=== PATIENT | female | born 1935 | race Caucasian/White ===

== ENCOUNTER 2020-06-19 09:02 | Outpatient (CLI) | payer MEDICARE, SELFPAY ==
--- NOTE | ~2020-06-19 | MM_ITS ---
EXAMINATION: MM screening valeri BI w kristian HISTORY: Screening TECHNIQUE: Craniocaudal and mediolateral oblique 3-D tomosynthesis images were obtained and synthetic 2-D images were generated. CAD analysis was submitted and interpreted. COMPARISON: Comparison to multiple prior studies sequentially, with oldest reviewed study dated 01/19. BREAST PARENCHYMAL COMPOSITION: The breasts are heterogeneously dense, which may obscure small masses . FINDINGS: There is no evidence of suspicious mass, calcification, or architectural distortion to sugg est malignancy in either breast. There has been no suspicious interval change. IMPRESSION: 1. No mammographic evidence of malignancy. 2. Recommend routine screening mammography in one year. BI-RADS Category 1: Negative Reviewed, dictated and finalized at location A.
== END 2020-06-19 09:03 | disposition home or self-care (01) ==
PROVIDERS: PCP Internal Medicine; Visit Provider Internal Medicine
DX: Z12.31 Encounter for screening mammogram for malignant neoplasm of breast (principal)
CPT/HCPCS: 77063; 77067

== ENCOUNTER 2020-11-04 10:58 | Outpatient (NON) | payer MEDICARE, SELFPAY ==
[2020-11-04 21:33] LABS: SARS-CoV-2 RNA PCR Positive
== END 2020-11-04 10:59 ==
LOC: ANHCOVIDDT 10:59
PROVIDERS: PCP Internal Medicine; Visit Provider Physician Assistant
DX: U07.1 COVID-19 (principal); R68.89 Other general symptoms and signs
CPT/HCPCS: 87635; C9803; U0003

== ENCOUNTER 2020-11-18 11:18 | Outpatient (CLI) | payer MEDICARE, SELFPAY ==
--- NOTE | ~2020-11-18 | XR_ITS ---
EXAMINATION: XR chest 2V DATE: 11/18/2020 11:44 INDICATION: Cough. TECHNIQUE: Frontal and lateral views of the chest were obtained. COMPARISON: Chest 2 views 12/07/2016, CT abdomen and pelvis 10/27/2018 FINDINGS: There are mild airspace opacities in the mid and lower lung zones. There is linear atelecta sis versus scarring in left upper lung zone. No pleural effusion or pneumothorax. Cardiomegaly is not ed. IMPRESSION: 1. Mild airspace opacities in the mid and lower lung zones, consistent with atelectasis versus pneumo jayne. 2. Cardiomegaly. Reviewed, dictated and finalized at location A. ICAL PHARMACY MANAGER IMPRESSION: 1. Mild airspace opacities in the mid and lower lung zones, consistent with ate lectasis versus pneumonia. 2. Cardiomegaly.
== END 2020-11-18 11:19 | disposition home or self-care (01) ==
PROVIDERS: PCP Internal Medicine; Visit Provider Internal Medicine
DX: R05 Cough (principal); I51.7 Cardiomegaly
CPT/HCPCS: 71046

== ENCOUNTER 2020-11-26 10:09 | Outpatient (CLI) | payer MEDICARE, SELFPAY ==
--- NOTE | 2020-11-26 10:22 | ECG_ITS ---
Measurements Intervals [place] Rate: 90 P: VT: 0 QRS: 84 QRSD: 92 T: -21 QT: 353 QTc: 433 Interpretive Statements ATRIAL FIBRILLATION BORDERLINE ST-T WAVE ABNORMALITY- ANT/INF LEADS ABNORMAL ECG Electronically Signed On 11-26-2020 12:08:29 [employer] [place] by Evgeny Wade D.O.
== END 2020-11-26 10:10 | disposition home or self-care (01) ==
PROVIDERS: PCP Internal Medicine; Visit Provider Internal Medicine
DX: I49.9 Cardiac arrhythmia, unspecified (principal); R94.31 Abnormal electrocardiogram [ECG] [EKG]
CPT/HCPCS: 93005

== ENCOUNTER 2021-06-19 09:29 | Outpatient (CLI) | payer MEDICARE, SELFPAY ==
--- NOTE | ~2021-06-19 | MM_ITS ---
EXAMINATION: MM screening valeri BI w kristian HISTORY: Screening TECHNIQUE: Craniocaudal and mediolateral oblique 3-D tomosynthesis images were obtained and synthetic 2-D images were generated. CAD analysis was submitted and interpreted. COMPARISON: Comparison to multiple prior studies sequentially, with oldest reviewed study dated 11/2014. BREAST PARENCHYMAL COMPOSITION: The breasts are heterogeneously dense, which may obscure small masses . FINDINGS: There is no evidence of suspicious mass, calcification, or architectural distortion to sugg est malignancy in either breast. There has been no suspicious interval change. IMPRESSION: 1. No mammographic evidence of malignancy. 2. Recommend routine screening mammography in one year. BI-RADS Category 1: Negative Reviewed, dictated and finalized at location A.
== END 2021-06-19 09:30 | disposition home or self-care (01) ==
LOC: ANHIMG 09:30
PROVIDERS: PCP Internal Medicine; Visit Provider Internal Medicine
DX: Z12.31 Encounter for screening mammogram for malignant neoplasm of breast (principal)
CPT/HCPCS: 77063; 77067

== ENCOUNTER 2021-08-24 12:31 | Emergency (ER) | payer MEDICARE, SELFPAY ==
[2021-08-24 12:35] VITALS: BP 119/63; PULSE 85; RESP 16; TEMP 36.7; O2SAT 97
--- NOTE | 2021-08-24 12:44 | ED.URI ---
HPI - URI/Sore Throat General Chief Complaint: Upper Respiratory Infection Stated Complaint: Sinus Congestion Time Seen by Provider: 08/24/21 12:44 Source: patient, family and RN notes reviewed History of Present Illness HPI Narrative: Patient is an 85-year-old female who presents the urgent care with a family member with complaints of chronic sinusitis symptoms. States that she has had sinus congestion, postnasal drainage, mild cough and rhinorrhea for approximately 2+ weeks. Patient states that she recently also had the stomach flu and has resolved all symptoms. Denies of any recent fevers, nausea, vomiting, shortness of breath. Patient states she did have Covid over [place] last year and has not since then received the Covid vaccine. Patient states that she has had some chronic fatigue since being diagnosed with Covid. No other acute complaints. No acute distress noted. Patient and family aware of the plan of care. Some parts of this dictation were generated by voice recognition software and may contain typographical and/or grammatical inaccuracies. Related Data Home Medications Medication Instructions Recorded Confirmed calcium carbonate 500 mg (1,250 2 tablet PO DAILY tablet 11/10/19 08/24/21 mg)-vitamin D3 200 unit tablet glucosamine sulfate 500 mg tablet 500 mg PO BID 11/10/19 08/24/21 rivaroxaban [Xarelto] 20 mg PO DAILY 08/24/21 08/24/21 Allergies Allergy/AdvReac Type Severity Reaction Status Date / Time bacitracin Allergy Mild Rash Verified 08/24/21 12:40 [From Neosporin ([id number])] codeine Allergy Mild Nausea and Verified 08/24/21 12:40 Vomiting latex Allergy Mild Rash Verified 08/24/21 12:40 neomycin Allergy Mild Rash Verified 08/24/21 12:40 [From Neosporin ([id number])] polymyxin B Allergy Mild Rash Verified 08/24/21 12:40 [From Neosporin ([id number])] Review of Systems Review of Systems: CONSTITUTIONAL: Denies fever, chills, or sweats. EYES: Denies visual changes, redness, or discharge. ENT: Sinus congestion, postnasal drainage CARDIOVASCULAR: Denies chest pain, palpitations, or edema. RESPIRATORY: Reports a mild cough without dyspnea GASTROINTESTINAL: Denies abdominal pain, nausea, vomiting, or diarrhea. GENITOURINARY: Denies dysuria or hematuria. SKIN: Denies rash or itching. MUSCULOSKELETAL: Denies back pain, joint pain. Reports body aches NEUROLOGIC: Denies headache, numbness, or weakness. All other systems reviewed are negative, except as documented in HPI. [facility] Past Medical History Medical History (Updated 08/24/21 @ 12:54 by TAMMIE Hernandez) Facial basal cell cancer H/O Mohs micrographic surgery for skin cancer (~04/2020) Family History Family History Mother Hypertension Family history of Alzheimer's disease Family history of renal failure Patient's mother is Other Cerebrovascular accident Diabetes mellitus Family history of kidney disease Social History Social History Smoking status: Never smoker Second hand tobacco smoke exposure: No Alcohol intake: never Substance use: never Comments At the time of my signature, I reviewed and agree with the nursing past medical, surgical, social, and family history. There is no relevant family history pertinent to the patient complaint. Exam Narrative: GENERAL: This is a well-nourished, well-developed patient, in no apparent distress. HEAD: normocephalic, atraumatic. EYES: PERRL. Sclera clear/white. Vision is grossly intact. EARS: External ears normal, auditory canals clear and without drainage, TMs normal without perforation. Hearing grossly intact. NOSE: External nose normal with no obvious nasal discharge, nares without redness, clear throat rhinorrhea. THROAT: Mucous membranes moist, posterior pharynx clear. Mild postnasal drainage NECK: N
[2021-08-24 12:49] VITALS: BP 119/63; PULSE 85; RESP 16; TEMP 36.7; O2SAT 97
== END 2021-08-24 13:00 | disposition home or self-care (01) ==
PROVIDERS: Emergency Provider Nurse Practitioner Family; PCP Internal Medicine
DX: J01.90 Acute sinusitis, unspecified (principal); Z85.828 Personal history of other malignant neoplasm of skin
CPT/HCPCS: 99213; G0463

== ENCOUNTER 2021-12-26 14:09 | Outpatient (CLI) | payer MEDICARE, SELFPAY ==
--- NOTE | ~2021-12-26 | US_ITS ---
EXAMINATION: US art doppler w press LE BI DATE: 12/26/2021 15:00 INDICATION: Peripheral arterial occlusive disease. TECHNIQUE: Segmental pressures and plethysmographic and Doppler waveforms of the brachial and lower e xtremity arteries were obtained. COMPARISON: None. FINDINGS: Right and left brachial artery pressures of 99 mm Hg and 118 mm Hg, respectively, are concordant (nor mal difference <= 30 mmHg). The right and left high-thigh pressure indices are 1.44 and 1.51, respect ively (normal > 1.2). The right ankle-brachial index (STEF) is 0.97 (normal >= 0.9-1). The right great toe-brachial index (T BI) is 0.80 (normal >= 0.6-0.8). The right lower extremity segmental pressure gradients are increased between the high right thigh and the right rtlpi-yya-ciwn popliteal artery (normal gradients <= 20-3 0 mmHg between adjacent levels on the same leg or the same levels on the two legs). Additional increa sed pressure gradient between the right xqcyc-rml-evgr popliteal artery and the arteries at the right ankle. Arterial waveforms are biphasic with brisk systolic upstrokes throughout the arteries of the right lower limb. Cardiac arrhythmia is present. The left STEF is 1.35. The left TBI is 0.56. The left lower extremity segmental pressure gradients are increased between the left high thigh and the left zwjsm-qib-xgtc popliteal artery as well as betwee n the left posterior tibial artery and both the left wpqct-ter-saat popliteal artery and left dorsali s pedis artery. Arterial waveforms are biphasic with brisk systolic upstrokes throughout the arteries of the left lower limb. IMPRESSION: 1. 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 2. No significant arterial occlusive disease to the right lower limb with normal right STEF and TBI. 3. Cardiac arrhythmia is present. Correlate with EKG. Reviewed, dictated and finalized at location A. HANA DEVELOPER IMPRESSION: 1. 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 2. No significant arterial occlusive disease to the right lower limb with nolan l right STEF and TBI. 3. Cardiac arrhythmia is present. Correlate with EKG.
== END 2021-12-26 14:10 | disposition home or self-care (01) ==
PROVIDERS: PCP Internal Medicine; Visit Provider Podiatrist Foot & Ankle Surgery
DX: I73.9 Peripheral vascular disease, unspecified (principal); I49.9 Cardiac arrhythmia, unspecified
CPT/HCPCS: 93923

== ENCOUNTER 2022-01-12 13:19 | Outpatient (CLI) | payer MEDICARE, SELFPAY ==
--- NOTE | 2022-01-12 13:20 | EST_ITS ---
Patient Info Name: Cadence Palacios Age: 86 years : 1935 Gender: Female Ht: 58 in Wt: 131 lbs BSA: 1.58 m2 Exam Date: 01/12/2022 2:08 PM Exam Location: [facility] Patient Status: Outpatient Admit Date: 01/12/2022 Staff Ordering Physician: Evgeny Wade DO Attending Provider: Evgeny Wade DO Exam Type: CA stress nadia w NM Summary 1. 1. Negative lexiscan stress test for ischemic ST changes by ECG criteria. 2. 2. Stable hemodynamics throughout the test. 3. 3. Nuclear scan to follow and will be reported separately. Please correlate with it. 4. 4. Patient informed of the above results. Protocol: LEXISCAN Stress ECG Details Stage: REST Duration (min): 0 min : 58 sec HR (bpm): 105 SBP (mmHg): 125 DBP (mmHg): 80 Stage: REST Duration (min): 10 min : 9 sec HR (bpm): 113 SBP (mmHg): 125 DBP (mmHg): 80 Stage: STAGE 1 Duration (min): 0 min : 6 sec HR (bpm): 105 SBP (mmHg): 125 DBP (mmHg): 80 Stage: RECOVERY Duration (min): 0 min : 53 sec HR (bpm): 125 SBP (mmHg): 125 DBP (mmHg): 80 Stage: RECOVERY Duration (min): 1 min : 53 sec HR (bpm): 127 SBP (mmHg): 116 DBP (mmHg): 75 Stage: RECOVERY Duration (min): 2 min : 53 sec HR (bpm): 132 SBP (mmHg): 124 DBP (mmHg): 79 Stage: RECOVERY Duration (min): 3 min : 53 sec HR (bpm): 128 SBP (mmHg): 126 DBP (mmHg): 81 Stage: RECOVERY Duration (min): 4 min : 53 sec HR (bpm): 113 SBP (mmHg): 123 DBP (mmHg): 84 Stage: RECOVERY Duration (min): 5 min : 53 sec HR (bpm): 131 SBP (mmHg): 123 DBP (mmHg): 85 Stage: RECOVERY Duration (min): 6 min : 3 sec HR (bpm): 115 SBP (mmHg): 123 DBP (mmHg): 85 Rest HR: 113 bpm Peak HR: 132 bpm Rest Sys BP: 125 mmHg Peak Sys BP: 126 mmHg Max Pred HR: 135 bpm % Max Pred HR: 98 % Target HR: 115 bpm Max RPP: 16,632 bpm*mmHg Termination Reason: Completed protocol Cardiac Symptoms: Shortness of breath Total Time: 0 min : 6 sec Rest Mortensen BP: 80 mmHg Peak Mortensen BP: 81 mmHg Total Dose: 0.4 mg Resting ECG Normal sinus rhythm - normal ECG. Stress ECG No ST changes. Arrhythmias None. Report Signatures
--- NOTE | 2022-01-12 17:36 | WPDCARIOSTRE ---
Nuclear Stress Test INDICATIONS Indications: Shortness of breath PROCEDURE Procedure Performed: Myocardial Perf Spect-Multi Procedure: Patient underwent a lexiscan stress test and immediately as injected with 30.6 mCi of cardiolyte. Multiple tomographic images were obtained. These are of good quality. There are no perfusion defects with stress imaging. A separate resting images were obtained after patient was injected with 9.4 mCi of cardiolyte. Multiple tomographic images were obtained. These are of good quality. There are no perfusion defects with rest imaging. CONCLUSION Conclusion: 1. Normal myocardial perfusion imaging demonstrating no perfusion defects during stress or rest imaging. 2. No reversible ischemia. 3. Left ventriculogram demonstrates normal measured ejection fraction of 62% with no wall motion abnormalities. 4. TID score is normal at 0.85.
== END 2022-01-12 13:20 | disposition home or self-care (01) ==
LOC: CHSIMG 13:20
PROVIDERS: PCP Internal Medicine; Visit Provider Internal Medicine Cardiovascular Disease
DX: R07.9 Chest pain, unspecified (principal)
CPT/HCPCS: 78452; 93017; A9502; J2785

== ENCOUNTER 2022-07-16 10:17 | Outpatient (CLI) | payer MEDICARE, SELFPAY ==
--- NOTE | ~2022-07-16 | MM_ITS ---
EXAMINATION: MM screening valeri BI w kristian HISTORY: Screening mammogram TECHNIQUE: Craniocaudal and mediolateral oblique 3-D tomosynthesis images were obtained and synthetic 2-D images were generated. CAD analysis was submitted and interpreted. COMPARISON: 06/19/2021, 06/19/2020, 04/17/2019 bilateral screening mammogram examinations BREAST PARENCHYMAL COMPOSITION: The breasts are heterogeneously dense, which may obscure small masses . FINDINGS: Occasional bilateral benign calcifications. There is no evidence of suspicious mass, calcif ication, or architectural distortion to suggest malignancy in either breast. There has been no suspic ious interval change. IMPRESSION: 1. No mammographic evidence of malignancy. 2. Recommend routine screening mammography in one year. BI-RADS Category 2: Benign finding(s). Reviewed, dictated and finalized at location A.
== END 2022-07-16 10:18 | disposition home or self-care (01) ==
PROVIDERS: PCP Internal Medicine; Visit Provider Internal Medicine
DX: Z12.31 Encounter for screening mammogram for malignant neoplasm of breast (principal)
CPT/HCPCS: 77063; 77067

== ENCOUNTER 2022-08-30 19:20 | Emergency (ER) | payer MEDICARE, SELFPAY ==
--- NOTE | ~2022-08-30 | CT_ITS ---
EXAMINATION: CT facial & cervical spine wo DATE: 08/30/2022 20:13 INDICATION: Head injury TECHNIQUE: Computed tomography (CT) of the maxillofacial region and cervical spine was performed with out intravenous contrast. The dose-length product (DLP) was 180.79 mGy-cm. Automated exposure control and iterative reconstruction technique were employed. COMPARISON: None FINDINGS: MAXILLOFACIAL CT: There are comminuted bilateral nasal bone fractures. No additional facial fracture is identified. The re are maxillary soft tissue swelling. CERVICAL SPINE CT: There is 1 mm of anterolisthesis of C3-4 on C5 and C5 on C6. There is no fracture. The odontoid is in tact. There is mild loss of intervertebral disc space height throughout the cervical spine. There is moderate multilevel facet and uncovertebral joint osteoarthritis. IMPRESSION: 1. Acute bilateral nasal bone fractures. 2. Mild cervical spondylosis without acute findings. Reviewed, dictated and finalized at location F.
--- NOTE | ~2022-08-30 | XR_ITS ---
EXAMINATION: XR hip RT 2V w AP pelvis INDICATION: Right hip pain TECHNIQUE: AP view the pelvis and two views of the right hip are obtained. COMPARISON: None available FINDINGS: Bone alignment is normal. There is mild osteoarthritis of the hips. There is no fracture. T here are phleboliths of the pelvis. Calcified atherosclerosis is noted. IMPRESSION: 1. No acute osseous abnormality. Reviewed, dictated and finalized at location F.
--- NOTE | ~2022-08-30 | CT_ITS ---
EXAMINATION: CT brain wo con INDICATION: Head injury COMPARISON: None TECHNIQUE: Standard unenhanced head CT. The dose-length product (DLP) was 605.33 mGy-cm. The mA was a djusted according to patient size. Iterative reconstruction technique was employed. FINDINGS: There is no acute intraparenchymal hemorrhage. No evidence of mass lesion. No evidence of a cute infarction. There is mild periventricular and subcortical hypodensity probably related to small vessel ischemic disease. There is mild prominence of the sulci and ventricles related to cerebral atr ophy. Intracranial calcified cerebral atherosclerosis is noted. There are no extra-axial collections. There is no mass effect or midline shift. The orbits and soft tissues are unremarkable. The visualiz ed sinuses and mastoid air cells are well aerated. IMPRESSION: 1. No acute intracranial abnormality. 2. Age related findings. Reviewed, dictated and finalized at location F.
--- NOTE | ~2022-08-30 | XR_ITS ---
EXAMINATION: XR shoulder LT min 2V INDICATION: Left shoulder pain TECHNIQUE: Four views of the left shoulder are submitted. COMPARISON: None FINDINGS: Normal alignment. No fracture. There is moderate glenohumeral and acromioclavicular joint o steoarthritis. Soft tissues are unremarkable. IMPRESSION: 1. No acute osseous abnormality. Reviewed, dictated and finalized at location F.
[2022-08-30 19:25] VITALS: BP 128/85; PULSE 82; RESP 18; TEMP 36.2; O2SAT 96
[2022-08-30 20:30] VITALS: BP 131/78; PULSE 73; RESP 16; O2SAT 98
[2022-08-30] MEDS: TETANUS,DIPHTHERIA,AC PERTUSSIS ADULT 0.5 ML (ADACEL) IM (20:38)
--- NOTE | 2022-08-30 20:42 | ED.FALL ---
HPI - Fall General Chief Complaint: Fall Stated Complaint: fell down yesterday;nose bleeding when eating Time Seen by Provider: 08/30/22 19:37 Source: patient Mode of arrival: ambulatory Limitations: no limitations History of Present Illness HPI Narrative: PATIENT IS A 86-YEAR-OLD WHITE FEMALE YESTERDAY AT 11:00 A.M. SHE TRIPPED AND FELL AT HOME OUTSIDE FACE FORWARD AGAINST THE BRICKS. SHE COMPLAINS OF BRUISING AND SWELLING OF HER FACE AND BILATERAL BLACK EYES. SHE IS ON XARELTO AND YESTERDAY SHE HAD SOME NOSE BLEEDS ASSOCIATED WITH THIS AND IT STOPPED LAST NIGHT. SHE HAS A HISTORY OF ATRIAL FIBRILLATION AND TOOK HER XARELTO THIS MORNING AND THEN HAD SAID SOME MORE BLEEDING TONIGHT DRIPPING DOWN THE BACK OF HER THROAT. DENIES ANY DIZZINESS OR LOSS OF CONSCIOUSNESS. SHE COMPLAINS OF LEFT SHOULDER BE FEELING SHORE BUT HAS FULL RANGE OF MOTION. SHE COMPLAINS OF RIGHT POSTERIOR HIP DISCOMFORT JUST WHEN SHE WALKS. SHE DENIES ANY NUMBNESS OR WEAKNESS OR PARESTHESIAS HEADACHE CHEST PAIN BACK PAIN ABDOMINAL PAIN NAUSEA OR VOMITING PROBLEMS VOIDING OR STOOLING. SHE DENIES ANY OTHER BLEEDING OR BRUISING OTHER THAN BRUISING ON HER ARMS THAT IS USUAL FOR HER. Related Data Home Medications Medication Instructions Recorded Confirmed calcium carbonate 500 mg-vitamin 2 tablet PO DAILY 11/10/19 08/30/22 D3 5 mcg (200 unit) tablet (Os-González 500 + D3) Allergies Allergy/AdvReac Type Severity Reaction Status Date / Time bacitracin Allergy Mild Rash Verified 08/30/22 19:38 [From Neosporin ([id number])] codeine Allergy Mild Nausea and Verified 08/30/22 19:38 Vomiting latex Allergy Mild Rash Verified 08/30/22 19:38 neomycin Allergy Mild Rash Verified 08/30/22 19:38 [From Neosporin ([id number])] polymyxin B Allergy Mild Rash Verified 08/30/22 19:38 [From Neosporin ([id number])] doxycycline AdvReac Nausea and Verified 08/30/22 19:38 Vomiting levofloxacin AdvReac Nausea and Verified 08/30/22 19:38 Vomiting Review of Systems Review of Systems: All systems reviewed & are unremarkable except as noted in HPI and below Constitutional: Constitutional: Reports as per HPI Eyes: Comments: PATIENT SAID THIS MORNING WHEN SHE WOKE UP HER EYES WERE ALMOST SWOLLEN SHUT BUT THE SWELLING IS GONE DOWN QUITE A BIT. SHE COMPLAINS OF SOME PAIN AROUND HER EYES AND CHEEKS. ENT: Reports system reviewed and no additional complaints, except as documented, Reports as per HPI, Denies dysphagia, Denies vertigo, Denies dizziness, Reports epistaxis, Reports nasal congestion and Denies sore throat Cardiovascular: Cardiovascular: Reports no additional cardiovascular complaints Respiratory: Respiratory: Reports no additional respiratory complaints Gastrointestinal: Gastrointestinal: Reports no additional gastrointestinal complaints Genitourinary: Genitourinary: Reports no additional female genitourinary complaints Musculoskeletal: Musculoskeletal: Reports no additional musculoskeletal complaints, Reports as per HPI, Denies back pain, Denies myalgias, Reports arthralgias, Denies joint swelling and Denies muscle cramps Integumentary/Breasts: Skin/Breast: Reports system reviewed and no additional complaints, except as docu Neurologic: Reports system reviewed and no additional complaints, except as documented, Reports as per HPI, Denies confusion, Denies vertigo, Denies dizziness, Denies syncope, Denies headache(s), Denies focal weakness, Denies numbness and Denies weakness Psychiatric: Psychiatric: Reports no additional psychiatric complaints [facility] Past Medical History Medical History (Updated 08/30/22 @ 21:08 by Carter Cano MD) Facial basal cell cancer H/O Mohs micrographic surgery for skin cancer (~04/2020) Family History Family History Mother Hypertension Family history of Alzheimer's disease Family history of renal f
== END 2022-08-30 21:10 | disposition home or self-care (01) ==
PROVIDERS: Emergency Provider Emergency Medicine; PCP Internal Medicine
DX: S02.2XXA Fracture of nasal bones, initial encounter for closed fracture (principal); S00.83XA Contusion of other part of head, initial encounter; S43.402A Unspecified sprain of left shoulder joint, initial encounter; S70.01XA Contusion of right hip, initial encounter; W19.XXXA Unspecified fall, initial encounter
CPT/HCPCS: 70450; 70486; 72125; 73030; 73502; 90471; 90715; 99284

== ENCOUNTER → 2023-01-04 11:09 | Outpatient (CLI) | payer MEDICARE, SELFPAY ==
--- NOTE | ~2023-01-04 | XR_ITS ---
Lumbosacral Spine: AP and lateral views Clinical History: Pain COMPARISON: 02/20/2015 Findings: The normal lordotic curve is maintained. No acute fracture seen. Stable grade 1 anterolisth esis of L4 over L5, measuring 8 mm. There is severe degenerative disc narrowing at L4-L5 and L5-S1. T here is advanced facet arthropathy from L3 through S1. The sacroiliac joints are normally outlined. Impression: No acute fracture. 8 mm anterolisthesis of L4 over L5. Degenerative spondylosis, as detailed above. Reviewed, dictated and finalized at location M. STRY NURSE Impression: No acute fracture. 8 mm anterolisthesis of L4 over L5. Degenerative spondylosis, as detailed above.
== END ==
PROVIDERS: PCP Internal Medicine; Visit Provider Nurse Practitioner Family
DX: M54.59 Other low back pain (principal); M43.16 Spondylolisthesis, lumbar region
CPT/HCPCS: 72100

== ENCOUNTER → 2023-02-01 10:13 | Outpatient (CLI) | payer MEDICARE, SELFPAY ==
--- NOTE | ~2023-02-01 | MR_ITS ---
MRI of the lumbar spine Clinical History: Back pain Technique: Axial T2-weighted images, and sagittal T1-weighted, T2-weighted, and T2 fat-sat images wer e acquired. COMPARISON: 04/29/2007 Findings: No fracture identified. 7 mm anterolisthesis of L4 over L5 is present. There is severe dege nerative disc narrowing at L4-L5 and L5-S1. No suspicious bone marrow signal abnormality seen. At L1-L2, there is mild diffuse disc bulge and mild facet arthropathy. No spinal canal stenosis. Ther e is mild to moderate right neural foraminal narrowing. Left neural foramen preserved. At L2-L3, there is no disc bulge or herniation. There is facet joint hypertrophy. No spinal canal mary jane nosis or definite neural foraminal narrowing. At L3-L4, there is mild disc bulge with advanced facet arthropathy. There is minimal central canal st enosis. There is minimal bilateral neural foraminal narrowing. At L4-L5, listhesis and facet arthropathy result in severe spinal canal stenosis/thecal sac compressi on. There is severe bilateral neural foraminal narrowing. At L5-S1, disc bulge and facet arthropathy result in moderate central canal stenosis. There is severe bilateral neural foraminal narrowing. Paravertebral soft tissues are unremarkable. Impression: Severe degenerative spondylosis at L4-L5 and L5-S1, as detailed above. Mild degenerative spondylosis of the remaining lumbar levels, as detailed above. 7 mm anterolisthesis of L4 over L5. Reviewed, dictated and finalized at [facility]. Impression: Severe degenerative spondylosis at L4-L5 and L5-S1, as detailed above. Mild degenerative spondylosis of the remaining lumbar levels, as detailed above . 7 mm anterolisthesis of L4 over L5.
== END ==
PROVIDERS: PCP Internal Medicine; Visit Provider Nurse Practitioner Family
DX: M47.816 Spondylosis without myelopathy or radiculopathy, lumbar region (principal)
CPT/HCPCS: 72148

== ENCOUNTER 2023-03-24 15:18 | Outpatient (RCR) | payer MEDICARE, SELFPAY ==
--- NOTE | 2023-03-24 15:55 | PTOPEVAL1 ---
Assessment and note entered by Kristopher Montoya Evaluation Information Assessment Status Evaluation Diagnosis low back pain Onset 11/08/22 Subjective Information Pt. reports she had back pain starting around the beginning of the year. She recalls falling around this time and that may have triggered her pain. She describes pain mainly on the right side of the low back and will occasionally go down the left leg. She reports that pain is increased with long periods of standing. She reports she had injections last week which have helped to decrease her pain. She reports that she has no difficulty with sleeping and no pain with sitting. All pain is noted in standing. She reports that she continues to complete all IADL's despite her pain. She states that she gets pain with her yardwork still, but is much less intense since injections. She reports that her goal is to decrease pain. Reported Pain Level Pain Score 2: Self Report Assessment PT Clinical Summary Pt. is an 87 year old female who enters the clinic with low back pain. She presents with impaired posture, impaired strength, impaired flexiblity and pain on this date. Continued skilled PT is indicated in order to improve these areas to allow for improved comfort with IADL performance. Plan of Care Interventions Electrical Stimulation,Hot Pack/Cold Pack,Manual Therapy,Neuro Re-education,Therapeutic Activities, Therapeutic Exercise PT Services Indicated Yes Treatment Frequency and 2x/week x 10 visits Duration These treatments will address the objective and functional deficits as defined above. The patient will be advanced safely and appropriately in order for the patient to progress towards his/her prior level of function. Additional exercises will be introduced and as well as a comprehensive home exercise program upon discharge, if needed, ?to ensure carryover of functional gains achieved in the clinic. This treatment plan has been reviewed and agreement upon by the patient.
== END 2023-04-27 20:00 | disposition home or self-care (01) ==
LOC: CHSPT 15:18
PROVIDERS: Visit Provider Nurse Practitioner Family
DX: M54.16 Radiculopathy, lumbar region (principal); M54.59 Other low back pain
CPT/HCPCS: 97014; 97110; 97112; 97161; G0283

== ENCOUNTER 2023-08-25 08:34 | Emergency (ER) | payer MEDICARE, SELFPAY ==
[2023-08-25] VITALS (7 sets, daily range): BP systolic 134–158; BP diastolic 73–103; PULSE 87–103; RESP 18–20; TEMP 36.7; O2SAT 94–97
--- NOTE | ~2023-08-25 | CT_ITS ---
EXAMINATION: CT brain wo con DATE: 08/25/2023 10:30 INDICATION: Frontal headache radiating to neck. No known injury. TECHNIQUE: Computed tomography (CT) of the head was performed without intravenous contrast. The mA wa s adjusted according to patient size. Iterative reconstruction technique was employed. Exam dose: 60 5.33 mGy-cm total exam DLP. COMPARISON: 08/30/2022 CT brain FINDINGS: Prominent bilateral carotid siphon and supraclinoid internal carotid artery calcifications and some vertebrobasilar artery calcifications are noted. Chronic right basal ganglia lacunar infarcts. There is nonspecific diminished attenuation of the cere bral white matter, likely due to chronic small vessel ischemic changes. No intracranial mass lesion or hemorrhage or recent cerebrovascular accident, midline shift or mass e ffect is detected. No fracture or bone destruction of the cranial vault. The mastoid air cells and included paranasal sinuses are normally developed and aerated. IMPRESSION: Cerebral atherosclerosis and chronic small vessel ischemic changes of the cerebral white matter Chronic small right basal ganglia lacunar infarcts No acute intracranial finding Reviewed, dictated and finalized at [facility]. Reviewed, dictated and finalized at location [facility].
--- NOTE | 2023-08-25 08:48 | ED.GENADULT ---
HPI - General Adult General Chief complaint: Unspecified Stated complaint: BP Issues Time Seen by Provider: 08/25/23 08:47 Source: patient Mode of arrival: ambulatory Limitations: no limitations History of Present Illness HPI narrative: 87-year-old female with a history of hypertension, dyslipidemia, atrial fibrillation on Xarelto, diastolic dysfunction with a negative stress test on 01/12/2022 presents to the ER with -- acute onset blurred vision which has resolved. currently her vision normal. -- Hypertension with a blood pressure of 140/100. Her blood pressure was elevated on presentation of 158/103. Currently her blood pressure is 138/89. The patient was on Lisinopril,l, bisoprolol and Norvasc. Her blood pressure was noted to be low following which her pot operator discontinued the Norvasc. the patient had a negative stress test on 01/12/2022. Denied any chest pain or breath -- Headache Onset (ago): hour(s) ( started 3 hours ago.) Location: head Severity: mild Quality: aching Pain Consistency: constant Relieving factors: none Exacerbating factors: none Associated symptoms: denies other symptoms and headaches Treatments prior to arrival: none Related Data Home Medications Medication Instructions Recorded Confirmed calcium carbonate 500 mg calcium 500 mg PO DAILY 09/02/22 07/15/23 (1,250 mg) tablet (Oyster Shell Calcium) pravastatin 10 mg tablet 10 mg PO DAILY 06/28/23 07/15/23 Allergies Allergy/AdvReac Type Severity Reaction Status Date / Time bacitracin Allergy Mild Rash Verified 07/15/23 10:06 [From Neosporin ([id number])] codeine Allergy Mild Nausea and Verified 07/15/23 10:06 Vomiting latex Allergy Mild Rash Verified 07/15/23 10:06 neomycin Allergy Mild Rash Verified 07/15/23 10:06 [From Neosporin ([id number])] polymyxin B Allergy Mild Rash Verified 07/15/23 10:06 [From Neosporin ([id number])] doxycycline AdvReac Nausea and Verified 07/15/23 10:06 Vomiting levofloxacin AdvReac Nausea and Verified 07/15/23 10:06 Vomiting Review of Systems Review of Systems: All systems reviewed & are unremarkable except as noted in HPI and below Constitutional: Constitutional: Reports as per HPI and Reports no additional constitutional complaints Eyes: Eyes: Reports as per HPI and Reports no additional eye complaints ENT: Reports system reviewed and no additional complaints, except as documented and Reports as per HPI Comments: Decreased hearing Cardiovascular: Cardiovascular: Reports as per HPI and Reports no additional cardiovascular complaints Comments: Was hypertensive in the morning. Respiratory: Respiratory: Reports as per HPI and Reports no additional respiratory complaints Gastrointestinal: Gastrointestinal: Reports as per HPI and Reports no additional gastrointestinal complaints Genitourinary: Genitourinary: Reports no additional female genitourinary complaints and Reports as per HPI Musculoskeletal: Musculoskeletal: Reports no additional musculoskeletal complaints and Reports as per HPI Integumentary/Breasts: Skin/Breast: Reports system reviewed and no additional complaints, except as docu and Reports as per HPI Neurologic: Reports system reviewed and no additional complaints, except as documented and Reports as per HPI Psychiatric: Psychiatric: Reports no additional psychiatric complaints and Reports as per HPI Endocrine: Endocrine: Reports no additional endocrine complaints and Reports as per HPI Hematologic/Lymphatic: Hematologic/Lymphatic: Reports no additional hematologic/lymphatic complaints and Reports as per HPI Allergic/Immunologic: Allergic/Immunologic: Reports no additional allergic/immunologic complaints and Reports as per HPI [facility] Past Medical History Medical History (Updated 08/25/23 @ 10:17 by Shad Fierro MD) Facial basal cell cancer H/O Mohs micrographic surgery for skin cancer (~04/2020)
--- NOTE | 2023-08-25 09:04 | ECG_ITS ---
Measurements Intervals [place] Rate: 83 P: VT: 0 QRS: 144 QRSD: 85 T: -6 QT: 367 QTc: 434 Interpretive Statements ATRIAL FIBRILLATION BASELINE ARTIFACT NONSPECIFIC ST AND T-WAVE ABNORMALITY ABNORMAL ECG COMPARED TO ECG 11/26/2020 10:32:05 NO SIGNIFICANT CHANGE Electronically Signed On 08-25-2023 18:22:29 CDT by Dieter Alcaraz M.D.
[2023-08-25 09:20] LABS: Basophils Absolute Auto 0.05 K/mm3 (0.00-0.10); Basophils Percent Auto 0.8 % (0.0-1.0); Eosinophils Percent Auto 4.6 % (1.0-6.0); Hematocrit 49.6 % (35.0-42.0); Hemoglobin 15.9 g/dL (11.7-13.8); Immature Granulocyte Absolute 0.02 K/mm3 (0.00-0.00); Immature Granulocyte Percent A 0.3 % (0.0-0.0); Lymphocytes Absolute Auto 1.45 K/mm3 (1.10-4.50); Mean Corpuscular HGB Conc 32.1 g/dL (32.0-36.0); Mean Corpuscular Hemoglobin 28.6 pg (27.0-31.0); Mean Corpuscular Volume 89.4 fL (78.0-102.0); Mean Platelet Volume 10.5 fl (9.2-11.8); Monocytes Absolute Auto 0.62 K/mm3 (0.10-0.90); Monocytes Percent Auto 9.4 % (2.0-11.0); Neutrophils Absolute Auto 4.2 K/mm3 (1.7-7.2); Neutrophils Percent Auto 62.9 % (50.0-70.0); Platelet Count Result 220 K/mm3 (150-420); Red Blood Count 5.55 M/mm3 (4.20-5.40); Red Cell Distribution Width 12.7 % (11.6-14.4); White Blood Count 6.6 K/mm3 (4.8-10.8)
[2023-08-25 09:42] LABS: Alanine Aminotransferase 15 U/L (14-59); Albumin Level 3.1 g/dL (3.4-5.0); Alkaline Phosphatase 97 U/L (46-116); Anion Gap 9 mmol/L (8-16); Aspartate Amino Transferase 11 U/L (15-37); Bilirubin,Total 0.4 mg/dL (0.00-1.00); Blood Urea Nitrogen 32 mg/dL (7-18); Calcium 9.3 mg/dL (8.5-10.1); Carbon Dioxide 29 mmol/L (21-32); Chloride 105 mmol/L (98-108); Estimated Glomerular Filt Rate 42; Glucose 87 mg/dL (70-99); NT Pro B Type Natriuretic Pept 2567 pg/mL (0-450); Osmolality Calculated 301 mOsm/kg (285-295); Potassium 4.2 mmol/L (3.5-5.1); Sodium 143 mmol/L (136-145); Total Protein 6.2 g/dL (6.4-8.2)
== END 2023-08-25 10:50 | disposition home or self-care (01) ==
PROVIDERS: Emergency Provider Internal Medicine Critical Care Medicine; PCP Internal Medicine
DX: I48.11 Longstanding persistent atrial fibrillation (principal); R51.9 Headache, unspecified; I12.9 Hypertensive chronic kidney disease with stage 1 through stage 4 chronic kidney disease, or unspecified chronic kidney disease; N18.32 Chronic kidney disease, stage 3b; E78.5 Hyperlipidemia, unspecified; Z79.01 Long term (current) use of anticoagulants
CPT/HCPCS: 36415; 70450; 80053; 83880; 84484; 85025; 93005; 99284

== ENCOUNTER 2023-09-01 10:11 | Outpatient (CLI) | payer MEDICARE, SELFPAY ==
--- NOTE | ~2023-09-01 | MM_ITS ---
EXAMINATION: MM screening valeri BI w kristian HISTORY: Screening mammogram TECHNIQUE: Craniocaudal and mediolateral oblique 3-D tomosynthesis images were obtained and synthetic 2-D images were generated. CAD analysis was submitted and interpreted. COMPARISON: 07/16/2022, 06/19/2021, 06/19/2020 right lateral screening mammogram examinations BREAST PARENCHYMAL COMPOSITION: The breasts are heterogeneously dense, which may obscure small masses . FINDINGS: Occasional scattered bilateral benign calcifications. There is no evidence of suspicious ma ss, calcification, or architectural distortion to suggest malignancy in either breast. There has been no suspicious interval change. IMPRESSION: 1. No mammographic evidence of malignancy. 2. Recommend routine screening mammography in one year. BI-RADS Category 2: Benign finding(s). Reviewed, dictated and finalized at location [facility].
== END 2023-09-01 10:12 | disposition home or self-care (01) ==
LOC: ANHIMG 10:14
PROVIDERS: PCP Internal Medicine; Visit Provider Internal Medicine
DX: Z12.31 Encounter for screening mammogram for malignant neoplasm of breast (principal)
CPT/HCPCS: 77063; 77067

== ENCOUNTER 2023-10-25 06:46 | Emergency (ER) | payer MEDICARE, SELFPAY ==
[2023-10-25 06:46] VITALS: BP 142/87; PULSE 88; RESP 20; TEMP 36.4; O2SAT 96
--- NOTE | 2023-10-25 07:13 | ED.GENADULT ---
HPI - General Adult General Chief complaint: Nausea/Vomiting/Diarrhea Stated complaint: nausea; vomiting; diarhhea Time Seen by Provider: 10/25/23 07:11 History of Present Illness HPI narrative: 88yo woman presents feeling weak and tired, nauseated, for the past week. Sinuses congested. Feels chilled and achey. No fever. No chest pain, cough, or dyspnea. No vomiting or diarrhea. No dysuria. Related Data Home Medications Medication Instructions Recorded Confirmed calcium carbonate 500 mg calcium 500 mg PO DAILY 09/02/22 10/25/23 (1,250 mg) tablet (Oyster Shell Calcium) Allergies Allergy/AdvReac Type Severity Reaction Status Date / Time bacitracin Allergy Mild Rash Verified 07/15/23 10:06 [From Neosporin ([id number])] codeine Allergy Mild Nausea and Verified 07/15/23 10:06 Vomiting latex Allergy Mild Rash Verified 07/15/23 10:06 neomycin Allergy Mild Rash Verified 07/15/23 10:06 [From Neosporin ([id number])] polymyxin B Allergy Mild Rash Verified 07/15/23 10:06 [From Neosporin ([id number])] doxycycline AdvReac Nausea and Verified 07/15/23 10:06 Vomiting levofloxacin AdvReac Nausea and Verified 07/15/23 10:06 Vomiting Review of Systems Review of Systems: All systems reviewed & are unremarkable except as noted in HPI and below Constitutional: Constitutional: Reports chills and Denies fever(s) ENT: Denies dysphagia Cardiovascular: Cardiovascular: Denies chest pain Respiratory: Respiratory: Denies dyspnea Gastrointestinal: Gastrointestinal: Denies abdominal pain [facility] Past Medical History Medical History (Updated 10/25/23 @ 08:03 by Michel Schofield MD) Facial basal cell cancer H/O Mohs micrographic surgery for skin cancer (~04/2020) Family History Family History Mother Hypertension Family history of Alzheimer's disease Family history of renal failure Patient's mother is Other Cerebrovascular accident Diabetes mellitus Family history of kidney disease Social History Social History Smoking status: Never smoker Second hand tobacco smoke exposure: No Alcohol intake: never Substance use: never Lack of Transportation: No Lack of Food: Never True Current Housing: I Have Housing Concerned About Future Housing: No Difficulty Paying Gas/Electric Bills: No Difficulty Paying for Meds: No Currently Unemployed: No Education: Grade School Difficulty w/ Childcare or Family Care: No Exam Const: General: healthy appearing and no acute distress Nutritional Appearance: well nourished HENMT: Head: normal to inspection, no contusions and no hematomas Eyes: Conjunctivae: conjunctivae normal Resp: Effort & Inspection: normal respiratory effort and not labored Auscultation: clear to auscultation bilaterally Cardio: Rate: regular rate Rhythm: regular rhythm Heart sounds: no murmurs GI: Inspection: non-distended GI Palp: Yes Soft to palpation and No Tenderness to palpation present (GI) Skin: General skin exam: normal color, no jaundice and no pallor Neuro: General: patient oriented x3, moves all extremities, no focal motor deficits and CN's II-XI intact bilaterally Extrem: General: no clubbing, cyanosis or edema Course Vital Signs Vital signs: Vital Signs Temperature 36.4 C 10/25/23 06:46 Pulse Rate 88 10/25/23 06:46 Respiratory Rate 20 10/25/23 06:46 Blood Pressure 142/87 H 10/25/23 06:46 Pulse Oximetry 96 10/25/23 06:46 Oxygen Delivery Room Air 10/25/23 06:46 Temperature 36.4 C 10/25/23 06:46 Pulse Rate 88 10/25/23 06:46 Respiratory Rate 20 10/25/23 06:46 Blood Pressure 142/87 H 10/25/23 06:46 Pulse Oximetry 96 10/25/23 06:46 Oxygen Delivery Room Air 10/25/23 06:46 Medical Decision Making MDM Narrative Med
[2023-10-25] MEDS: PROCHLORPERAZINE MALEATE 5 MG TABLET 2.5 MG PO (07:17)
[2023-10-25 07:26] LABS: Basophils Absolute Auto 0.01 K/mm3 (0.00-0.10); Basophils Percent Auto 0.2 % (0.0-1.0); Hematocrit 46.6 % (35.0-42.0); Hemoglobin 14.8 g/dL (11.7-13.8); Immature Granulocyte Absolute 0.04 K/mm3 (0.00-0.00); Immature Granulocyte Percent A 0.7 % (0.0-0.0); Lymphocytes Absolute Auto 0.62 K/mm3 (1.10-4.50); Lymphocytes Percent Auto 10.4 % (18.0-42.0); Mean Corpuscular HGB Conc 31.8 g/dL (32.0-36.0); Mean Corpuscular Hemoglobin 28.6 pg (27.0-31.0); Mean Platelet Volume 10.1 fl (9.2-11.8); Monocytes Absolute Auto 0.76 K/mm3 (0.10-0.90); Monocytes Percent Auto 12.8 % (2.0-11.0); Neutrophils Absolute Auto 4.5 K/mm3 (1.7-7.2); Neutrophils Percent Auto 75.9 % (50.0-70.0); Platelet Count Result 146 K/mm3 (150-420); Red Blood Count 5.18 M/mm3 (4.20-5.40); Red Cell Distribution Width 13.5 % (11.6-14.4)
[2023-10-25 07:32] LABS: SARS-CoV-2 RNA PCR Positive (Negative)
[2023-10-25 07:33] LABS: Influenza A QL RT-PCR Negative (Negative); Influenza B QL RT-PCR Negative (Negative); RSV RNA, RT-PCR Negative (Negative)
[2023-10-25 07:42] LABS: Alanine Aminotransferase 52 U/L (14-59); Alkaline Phosphatase 113 U/L (46-116); Anion Gap 3 mmol/L (8-16); Aspartate Amino Transferase 48 U/L (15-37); Bilirubin,Total 0.5 mg/dL (0.00-1.00); Blood Urea Nitrogen 13 mg/dL (7-18); Calcium 8.4 mg/dL (8.5-10.1); Carbon Dioxide 32 mmol/L (21-32); Chloride 100 mmol/L (98-108); Estimated Glomerular Filt Rate 51; Glucose 110 mg/dL (70-99); Magnesium 1.5 mg/dL (1.8-2.4); Osmolality Calculated 281 mOsm/kg (285-295); Potassium 3.4 mmol/L (3.5-5.1); Sodium 135 mmol/L (136-145); Total Protein 6.5 g/dL (6.4-8.2)
[2023-10-25 07:45] LABS: Appearance Urine Clear (Clear); Bilirubin Urine Negative (Negative); Blood Urine 1+ (Negative); Color Urine Light Yellow (Yellow); Glucose Urine UA Negative (Negative); Ketones Urine 1+ (Negative); Leukocyte Esterase Ur 1+ LEU/UL (Negative); Nitrate Urine Negative (Negative); Protein Urine 2+ (Negative); Specific Grav Ur >= 1.030 (1.010-1.020); Urobilinogen Urine 0.2 mg/dL (0.2-1.0); pH Urine 5.5 (5.0-8.0)
[2023-10-25 07:52] LABS: Add Urine Microscopic? YES
[2023-10-25 07:53] LABS: Bacteria Urine 1+ /hpf; Squamous Epithelial Cell Urine Rare /hpf (Few)
[2023-10-25 08:03] VITALS: BP 112/102; PULSE 117; RESP 20; O2SAT 92
[2023-10-25 08:17] VITALS: BP 112/89; PULSE 113; RESP 20; TEMP 37.2; O2SAT 94
--- NOTE | 2023-10-27 12:16 | PC.NURSE ---
FINAL URINE CULTURE RESULTS: MIXED GENITAL VÍCTOR ISOLATED. NO ACTION NEEDED.
== END 2023-10-25 08:20 | disposition home or self-care (01) ==
LOC: CHSED 07:37
PROVIDERS: Student in an Organized Health Care Education/Training Program; Emergency Provider Emergency Medicine; PCP Internal Medicine
DX: U07.1 COVID-19 (principal); R53.81 Other malaise; R53.83 Other fatigue
CPT/HCPCS: 36415; 80053; 81001; 83735; 85025; 87086; 87088; 87637; 99283; A9270

== ENCOUNTER 2024-01-11 12:18 | Outpatient (CLI) | payer MEDICARE, SELFPAY ==
--- NOTE | ~2024-01-11 | DEXA_ITS ---
Bone Density Report Name: BRICE PELAEZ Age: 88 Sex: Female Ethnicity: White Date of : 1935 Indication: postmenopausal; screening for osteoporosis; height loss; cancer; hysterectomy; Referring Provider: Marissa Gar Study: Bone densitometry was performed. Exam Date: January 11, 2024 Accession number: [id number] Bone Density: Region BMD T-score Z-score Classification AP Spine(L1, L2, L4) 1.146 1.0 3.9 Normal Femoral Neck (Left) 0.835 -0.1 2.4 Normal Total Hip (Left) 0.961 0.2 2.5 Normal Femoral Neck (Right) 0.776 -0.7 1.9 Normal Total Hip (Right) 0.866 -0.6 1.7 Normal Femoral Neck Mean 0.805 -0.4 2.1 Normal Total Hip Mean 0.913 -0.2 2.1 Normal World Health Organization criteria for BMD impression classify patients as: Normal (T-score at or above -1.0), Osteopenia (T-score between -1.0 and -2.5), or Osteoporosis (T-score at or below -2.5). 10-year Fracture Risk: FRAX not reported because: All T-scores for Spine Total, Hip Total, Femoral Neck at or above -1.0 Clinical Information Provided by Patient: Has used the following medications: Vitamin D, Calcium Has the following medical conditions: Cancer, Hysterectomy Patient maximum height was 62 Menopause Age: 51 No regular weight bearing exercise Drinks caffeinated beverages Onset of menses at age 13 Number of children 4 Impression: The patient has normal bone mass. Discussion: BONE DENSITY IS ABOVE THE MINIMUM DESIRABLE LEVEL AT ALL SKELETAL SITES TESTED. This patient?s bone mineral density is above the minimum desirable level (T-score -1.0 or better) at all sites measured. The patient should follow a healthful lifestyle (good nutrition with adequate calcium and vitamin D, and appropriate weight-bearing exercise). Follow-Up: Consider repeating this study in 5 years or sooner if there is some new clinical indication. Reported by: Dr. Lauro Mcneill on 01/11/2024 12:41:00 PM. Reviewed, dictated and finalized at location [facility].
== END 2024-01-11 12:19 | disposition home or self-care (01) ==
LOC: CHSIMG 12:19
PROVIDERS: PCP Internal Medicine; Visit Provider Internal Medicine
DX: Z78.0 Asymptomatic menopausal state (principal)
CPT/HCPCS: 77080

== ENCOUNTER 2024-01-11 13:36 | Outpatient (RCR) | payer MEDICARE, SELFPAY ==
--- NOTE | 2024-01-11 14:37 | OPREHPOC ---
Outpatient Therapy Plan of Care This is a Multidisciplinary Plan of Care that may contain components documented by all disciplines (PT, OT, and ST.) PT Problem 1 PT Problem #1 Knowledge Deficit PT Goal 1 Goal patient to demonstrate independence with HEP Target Visit 5 PT Problem 2 PT Problem #2 Impaired Range of Motion PT Goal 1 Goal patient to demonstrate -5-120 deg of R knee AROM to improve gait mechanics to return to prolonged ambulation for grocery shopping Target Visit 10 PT Problem 3 PT Problem #3 Impaired Strength PT Goal 1 Goal patient to demonstrate 5/5 of the R knee to improve ability to navigate stairs Target Visit 10 PT Problem 4 PT Problem #4 Impaired Functional Mobil PT Goal 1 Goal 1.patient to report ability to navigate kitchen steps without use of UE and step over step pattern 2.patient to report ability to stand to do dishes with no increase in R knee pain 3.patient to score 20% improvement on LEFS Target Visit 10
--- NOTE | 2024-01-11 14:37 | PTOPEVAL1 ---
Assessment and note entered by Ember Mattson DPT Evaluation Information Assessment Status Evaluation Diagnosis R knee pain Onset 01/04/24 Subjective Information patient reports chronic R knee pain that x-rays show arthritis in. she reports she does not want a replacement. she reports her R LE is weak and she has difficulty with stair navigation, ambulating prolonged periods and standing for prolonged periods. She reports she does not use an AD. she reports she is also limited by low back pain. she reports that her knee does not straighten all the way. Reported Pain Level Pain Score 0: Self Report Assessment PT Clinical Summary Ms. Palacios is a an 88 year old female who presents to PT with R knee pain and weakness. She demonstrates decreased R knee extension, decreased R LE strength and impaired gait mechanics limiting her ability to navigate stairs, ambulate to grocery shop and stand to complete house hold tasks. She would benefit from skilled PT to address impairments and return to PLOF Plan of Care Interventions Electrical Stimulation,Gait Training,Hot Pack/Cold Pack,Manual Therapy,Neuro Re-education,Patient/ Caregiver Educati,Therapeutic Activities, Therapeutic Exercise PT Services Indicated Yes Treatment Frequency and 2x weekly for 10 visits Duration These treatments will address the objective and functional deficits as defined above. The patient will be advanced safely and appropriately in order for the patient to progress towards his/her prior level of function. Additional exercises will be introduced and as well as a comprehensive home exercise program upon discharge, if needed, ?to ensure carryover of functional gains achieved in the clinic. This treatment plan has been reviewed and agreement upon by the patient.
--- NOTE | 2024-01-31 11:47 | PCPTNOTE ---
Patient cancelled appointments for 01/30 and for 01/31. Patient reports her chiropractor agrees that PT is making her back worse. Patient was educated on scheduling a re-evaluation.
== END 2024-01-28 20:00 | disposition home or self-care (01) ==
LOC: CHSPT 13:36
PROVIDERS: PCP Internal Medicine; Visit Provider Internal Medicine
DX: M25.561 Pain in right knee (principal)
CPT/HCPCS: 97110; 97161; 97530

== ENCOUNTER 2024-09-06 08:17 | Outpatient (CLI) | payer MEDICARE, SELFPAY ==
--- NOTE | ~2024-09-06 | MM_ITS ---
EXAMINATION: MM screening valeri BI w kristian HISTORY: Screening mammogram TECHNIQUE: Craniocaudal and mediolateral oblique 3-D tomosynthesis images were obtained and synthetic 2-D images were generated. CAD analysis was submitted and interpreted. COMPARISON: 09/01/2023, 07/16/2022, 06/19/2021, 06/19/2020 BREAST PARENCHYMAL COMPOSITION:Dense: The breasts are extremely dense, which lowers the sensitivity o f mammography. FINDINGS: No suspicious mass, calcification, or architectural distortion are identified in either seble ast to suggest malignancy. There has been no suspicious interval change. IMPRESSION: No mammographic evidence of malignancy. Recommend routine screening mammography in one year. BI-RADS Category 1: Negative Reviewed, dictated and finalized at location .
== END 2024-09-06 08:18 | disposition home or self-care (01) ==
LOC: ANHIMG 08:18
PROVIDERS: PCP Internal Medicine; Visit Provider Internal Medicine
DX: Z12.31 Encounter for screening mammogram for malignant neoplasm of breast (principal)
CPT/HCPCS: 77063; 77067

== ENCOUNTER 2024-10-14 21:15 | Emergency (ER) | payer MEDICARE, SELFPAY ==
--- NOTE | ~2024-10-14 | CT_ITS ---
EXAMINATION: CT brain wo con DATE: 10/14/2024 21:31 INDICATION: Head injury. TECHNIQUE: Computed tomography (CT) of the head was performed without intravenous contrast. The mA wa s adjusted according to patient size. Iterative reconstruction technique was employed. The dose-lengt h product was 681.00 mGy-cm. COMPARISON: Head CT 08/25/2023 FINDINGS: There are scattered areas of low attenuation in the cerebral white matter. There is no intr acranial hemorrhage, acute infarction, or abnormal intracranial mass lesion. The ventricles are nolan l in size. There are likely changes of ocular lens replacement surgeries. There is mild mucosal thick ening in the paranasal sinuses. The mastoid air cells are normal. There is anterosuperior scalp soft tissue swelling. IMPRESSION: 1. Moderate nonspecific cerebral white matter disease, which likely represents chronic small vessel i schemic disease. Reviewed, dictated and finalized at location A. [facility] [employer] IMPRESSION: 1. Moderate nonspecific cerebral white matter disease, which likely represents chronic small vessel ischemic disease.
[2024-10-14 21:15] VITALS: BP 156/109; PULSE 101; RESP 18; TEMP 36.3; O2SAT 93
--- NOTE | 2024-10-14 21:20 | ED.HEATRA ---
HPI - Head Injury General Stated complaint: fall Time Seen by Provider: 10/14/24 21:15 Source: patient and family Mode of arrival: ambulatory Limitations: no limitations History of Present Illness HPI Narrative: this is an 89-year-old female that had a fall earlier this afternoon hitting her head causing a small lump with no laceration no loss consciousness this occurred around 430 this afternoon, the patient has a history of AFib and is currently on Xarelto and family members were concerned about head bleed. The patient has no neurological deficits. No other injuries noted the patient doing well with no fever chills no nausea vomiting no blurry vision no headaches. Complaint: head injury Onset (ago): hour(s) Mechanism of Injury: fall Place: home Loss of Consciousness: no Location of injury: frontal Severity: mild Related Data Home Medications Medication Instructions Recorded Confirmed calcium carbonate (Oyster Shell 500 mg PO DAILY 09/02/22 10/14/24 Calcium) betamethasone valerate 0.1 % See Rx Instructions .Route .COMPLEX 10/14/24 10/14/24 topical cream Allergies Allergy/AdvReac Type Severity Reaction Status Date / Time bacitracin Allergy Mild Rash Verified 10/14/24 21:20 [From Neosporin ([id number])] codeine Allergy Mild Nausea and Verified 10/14/24 21:20 Vomiting latex Allergy Mild Rash Verified 10/14/24 21:20 neomycin Allergy Mild Rash Verified 10/14/24 21:20 [From Neosporin ([id number])] polymyxin B Allergy Mild Rash Verified 10/14/24 21:20 [From Neosporin ([id number])] doxycycline AdvReac Nausea and Verified 10/14/24 21:20 Vomiting levofloxacin AdvReac Nausea and Verified 10/14/24 21:20 Vomiting Review of Systems Review of Systems: All systems reviewed & are unremarkable except as noted in HPI and below PMFSH Past Medical History Medical History (Updated 10/14/24 @ 21:25 by Kristopher Hernández MD) Facial basal cell cancer H/O Mohs micrographic surgery for skin cancer (~04/2020) Family History Family History Mother Hypertension Family history of Alzheimer's disease Family history of renal failure Patient's mother is Other Cerebrovascular accident Diabetes mellitus Family history of kidney disease Social History Social History Smoking status: Never smoker Second hand tobacco smoke exposure: No Alcohol intake: never Substance use: never Lack of Transportation: No Lack of Food: Never True Current Housing: I Have Housing Concerned About Future Housing: No Difficulty Paying Gas/Electric Bills: No Difficulty Paying for Meds: No Currently Unemployed: No Education: Grade School Difficulty w/ Childcare or Family Care: No Exam Const: General: healthy appearing, no acute distress and alert Nutritional Appearance: well nourished Orientation/consciousness: patient oriented x3 Limitations: no limitations HENMT: Head: normal to inspection Eyes: Conjunctivae: conjunctivae normal Pupils: Equal, round and reactive pupils present Neck: Neck: normal visual inspection, no lymphadenopathy and no meningeal signs Chest: Chest palpation & inspection: normal inspection of the chest Resp: Effort & Inspection: normal respiratory effort Auscultation: clear to auscultation bilaterally Cardio: Rate: regular rate Rhythm: regular rhythm GI: GI Palp: Yes Soft to palpation Auscultation: normal bowel sounds Urinary Catheter: Urinary Catheter: patent and draining Skin: General skin exam: normal color Wounds: wounds noted Neuro: General: patient oriented x3, moves all extremities, no meningeal signs and no focal motor deficits Cranial nerves: Yes CN's II-XII intact bilaterally and Yes Nystagmus not present Speech: normal speech Gait exam (Neuro): Normal gait present Extrem: General: normal to inspection, no clubbing, cyanosis or edema and no pedal edema Course Course Emergency Course: Patient asymptomatic but had a minor head injury after a fall that occurred earlier this afternoon CT scan performed and reviewed. Vital Signs Vital signs: Vital Signs Temperature 36.3 C L 10/14/24 21:15 Pulse Rate 101 H 10/14/24 21:15 Respiratory Rate 18 10/14/24 21:15 Blood Pressure 156/109 H 10/14/24 21:15 Pulse Oximetry 93 10/14/24 21:15 Oxygen Delivery Room Air 10/14/24 21:15 Temperature 36.3 C L 10/14/24 21:15 Pulse Rate 101 H 10/14/24 21:15 Respiratory Rate 18 10/14/24 21:15 Blood Pressure 156/109 H 10/14/24 21:15 Pulse Oximetry 93 10/14/24 21:15 Oxygen Delivery Room Air 10/14/24 21:15 Critical Care Time Critical Care Time Critical Care Time: No Discharge Plan Discharge Clinical Impression: Minor head injury Patient Disposition: Home, Self-Care Condition: Stable Instructions: Antibiotic Form Prescriptions: No Action calcium carbonate [Oyster Shell Calcium] 500 mg calcium (1,250 mg) tablet 500 mg PO DAILY fluticasone propionate 50 mcg/actuation spray,suspension 2 spray intranasal DAILY PRN (Reason: nasal congestion) Qty: 48 3RF Rx Instructions: administer into each nostril Xarelto 20 mg tablet 0RF ondansetron 4 mg tablet,disintegrating 4 mg PO Q8H PRN (Reason: nausea and vomiting) Qty: 15 0RF omeprazole 20 mg capsule,delayed release(DR/EC) 20 mg PO DAILY Qty: 90 1RF meclizine 25 mg tablet 25 mg PO TID PRN (Reason: dizziness) Qty: 270 0RF bisoprolol-hydrochlorothiazide 5-6.25 mg tablet 1 tablet PO DAILY Qty: 90 0RF lisinopril 40 mg tablet See Rx Instructions .ROUTE .COMPLEX Qty: 30 0RF Dose Instruction: Take 1 tablet by mouth once daily Rx Instructions: Take 1 tablet by mouth once daily Xarelto 20 mg tablet See Rx Instructions .ROUTE .COMPLEX Qty: 30 5RF Dose Instruction: TAKE 1 TABLET BY MOUTH ONCE DAILY WITH EVENING MEAL Rx Instructions: TAKE 1 TABLET BY MOUTH ONCE DAILY WITH EVENING MEAL Follow-up/Referrals: Marissa Gar MD [Primary Care Provider] -
--- NOTE | 2024-10-14 21:31 | PC.NURSE ---
ERP aware of pt's blood pressure. No new orders at this time.
[2024-10-14 21:35] VITALS: BP 148/115
== END 2024-10-14 21:58 | disposition home or self-care (01) ==
LOC: CHSED 21:47
PROVIDERS: Emergency Provider Emergency Medicine; PCP Internal Medicine
DX: S09.90XA Unspecified injury of head, initial encounter (principal); I48.91 Unspecified atrial fibrillation; Z79.01 Long term (current) use of anticoagulants; W19.XXXA Unspecified fall, initial encounter; Y92.009 Unspecified place in unspecified non-institutional (private) residence as the place of occurrence of the external cause
CPT/HCPCS: 70450; 99284

== ENCOUNTER 2025-04-20 13:33 | Outpatient (CLI) | payer MEDICARE, SELFPAY ==
--- NOTE | ~2025-04-20 | XR_ITS ---
XR lumbar spine 2-3V 04/20/2025 13:50 Indication: Low back pain for one week Procedure: 3 views lumbar spine Comparison: 01/04/2023 Findings: There is loss of disc height at all lumbar levels. There is levoscoliosis centered at L1. N o acute fracture or traumatic malalignment. Sacral foramen are symmetric. There is grade 1 spondyloli sthesis at L4-5. There is complete loss of disc space at L5-S1. Sacral foramen are symmetric. Impression: 1: Severe lumbar spondylosis with levoscoliosis and grade 1 spondylolisthesis at L4-5. Reviewed, dictated and finalized at location B. Impression: 1: Severe lumbar spondylosis with levoscoliosis and grade 1 spondylolisthesis a t L4-5.
--- OUTSIDE RECORDS SUMMARY | 2025-04-20 13:37 | XMS_ITS | Encounter Summary ---
Author Organization [facility] Address [address] [facility] [place] [address] Care Team Providers Care Admission Specialist Name Role Phone Wesley Rivers DO Primary Care Provider [phone] [phone] Encounter Details Date Type Department Care Team (Late st Contact Info) Description 04/12/2019 Lab Requisition [facility] Care DermPath Lab [address] 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 Gender Identity Not on file Sexual Orientation Not on file documented as of this encounter Plan of Treatment Not on file documented as of this encounter Procedures Procedure Name Priority Date/Time Associated Diagnosis Comments DERMATOPATHOLOGY Routine 04/11/2019 12:0 0 AM CDT documented in this encounter Results * DERMATOPATHOLOGY (04/11/2019 12:00 AM CDT) Case Report Dermatopathology Report Case: [id number] Authorizing Provider: Deshaun Etienne MD Collected: 04/11/2019 12:00 AM Pathologist: Andrew Shabazz MD Received: 04/12/2019 12:03 PM Specimens: A) - Skin, midline upper lip at phitrum B) - Skin, right upper cutaneous lip 4:03 PM T DERMATOPATHOLOGY LABORATORY Final Diagnosis Specimen A. SKIN, midline upper lip at phitrum: BASAL CELL CARCINOMA, NODULAR TYPE (C44.319) Specimen B. SKIN, right upper cutaneous lip: HYPERPLASTIC (HYPERTROPHIC) ACTINIC KERATOSIS (L57.0) 4:03 PM T DERMATOPATHOLOGY LABORATORY at 1603 CDT Clinical History A: R/O SCC, BCC, ISK. B: R/O BCC, SCC, HAK. 4:03 PM T DERMATOPATHOLOGY LABORATORY Gross Description Specimen A: Received is one formalin filled container labeled with the patient's name and designated midline upper lip at phitrum. The specimen consists of a shave biopsy measuring [id number]. Jar 0. Specimen B: Received is one formalin filled container labeled with the patient's name and designated right upper cutaneous lip. The specimen consists of a shave biopsy measuring [id number]. Jar 0. 4:03 PM T DERMATOPATHOLOGY LABORATORY Microscopic Description Specimen A. SKIN, midline upper lip at phitrum: Within the dermis there are aggregates of basaloid cells with a high nuclear to cytoplasmic ratio and peripheral palisading. Specimen B. SKIN, right upper cutaneous lip: There is hyperkeratosis alternating with parakeratosis. There is epidermal hyperplasia with disorderly maturation of keratinocytes with nuclear pleomorphism confined to the lower half of the epidermis. 4:03 PM T DERMATOPATHOLOGY LABORATORY Disclaimer An external and internal positive and negative controls are appropriate for the histochemical, immunohistochemical and immunofluorescence stain(s) in this case (if any), except where stated explicitly. The performance characteristics of the stain(s) cited in this report were developed and its performance characteristic determined by the Dermatopathology Laboratory at [facility], directed by Dr. Clifton Shabazz. These tests need not be, and therefore are not, approved by the [place] Food and Drug Administration. The tests are used for clinical purposes. Billing Codes Specimen Charges Stain Charges 20890 02278 1 1 4:03 PM CDT DERMATOPATHOLOGY LABORATORY Embedded Images 06/06/201 9 4:03 PM CDT DERMATOPATHOLOGY LABORATORY Pathology/Cytology TISSUE SPECIMEN FROM SKIN / Unknown 04/11/2019 04/12/2019 12:03 PM CDT Miscellaneous samples (specimen) TISSUE SPECIMEN FROM SKIN / Unknown 04/11/2019 04/12/2019 12:03 PM CDT us Deshaun Etienne MD LAB - PATHOLOGY/CYTOLOGY ORD ERABLES Final Result DERMATOPATHOLOGY LABORATORY [facility] - Department of Dermatology [address] [facility], 5th Floor Lab B [address] [phone] documented in this encounter Visit Diagnoses Not on filedocumented in this encounter Care Teams Admission Specialist Relationship Specialty Start Date End Date Wesley Rivers DO [address] [facility] [address] [place] [address] PCP - General 04/03/09 documented as of this encounter
--- OUTSIDE RECORDS SUMMARY | 2025-04-20 13:37 | XMS_ITS | Encounter Summary ---
Author Organization [facility] Address [address] [facility] [place] [address] Care Team Providers Care Electric Motor Repair Supervisor Name Role Phone Wesley Rivers DO Primary Care Provider [phone] Encounter Details Date Type Department Care Team (Late st Contact Info) Description 03/02/2018 Lab Requisition [facility] Care DermPath Lab [address] 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 Gender Identity Not on file Sexual Orientation Not on file documented as of this encounter Plan of Treatment Not on file documented as of this encounter Procedures Procedure Name Priority Date/Time Associated Diagnosis Comments DERMATOPATHOLOGY Routine 03/01/2018 12:0 0 AM CDT documented in this encounter Results * DERMATOPATHOLOGY (03/01/2018 12:00 AM CDT) Case Report Dermatopathology Report Case: [id number] Authorizing Provider: Deshaun Etienne MD Collected: 03/01/2018 12:00 AM Pathologist: Andrew Shabazz MD Received: 03/02/2018 12:19 PM Specimens: A) - Skin, posterior top of left shoulder B) - Skin, left upper outer arm 3:21 PM T DERMATOPATHOLOGY LABORATORY Final Diagnosis Specimen A. SKIN, posterior top of left shoulder: BASAL CELL CARCINOMA, SUPERFICIAL MULTIFOCAL (C44.619) APPROXIMATES MARGIN Specimen B. SKIN, left upper outer arm: BASAL CELL CARCINOMA, SUPERFICIAL MULTIFOCAL (C44.619) NOT PRESENT AT SAMPLED MARGIN 3:21 PM T DERMATOPATHOLOGY LABORATORY at 1521 CDT Clinical History A-B: R/O SCC, BCC. Check margins. 3:21 PM [facility] DERMATOPATHOLOGY LABORATORY Gross Description Specimen A: Received is one formalin filled container labeled with the patient's name and designated posterior top of left shoulder. The specimen consists of a shave biopsy measuring [id number]. The margin is inked green. Jar 0. Specimen B: Received is one formalin filled container labeled with the patient's name and designated left upper outer arm. The specimen consists of a shave biopsy measuring [id number]. The margin is inked green. Jar 0. 3:21 PM CDT DERMATOPATHOLOGY LABORATORY Microscopic Description Specimen A. SKIN, posterior top of left shoulder: Attached to the undersurface of the epidermis, there are small aggregates of basaloid cells with a high nuclear to cytoplasmic ratio and peripheral palisading. This lesion approximates the margin of the specimen. Specimen B. SKIN, left upper outer arm: Attached to the undersurface of the epidermis, there are small aggregates of basaloid cells with a high nuclear to cytoplasmic ratio and peripheral palisading. This lesion is not present at the sampled margin of the specimen. 3:21 PM CDT DERMATOPATHOLOGY LABORATORY Disclaimer An external and internal positive and negative controls are appropriate for the histochemical, immunohistochemical and immunofluorescence stain(s) in this case (if any), except where stated explicitly. The performance characteristics of the stain(s) cited in this report were developed and its performance characteristic determined by the Dermatopathology Laboratory at [facility]. These tests need not be, and therefore are not, approved by the [place] Food and Drug Administration. The tests are used for clinical purposes. Billing Codes Specimen Charges Stain Charges 41678 16514 1 1 8 3:21 PM CDT DERMATOPATHOLOGY LABORATORY Embedded Images 8 3:21 PM CDT DERMATOPATHOLOGY LABORATORY Pathology/Cytology TISSUE SPECIMEN FROM SKIN / Unknown 03/01/2018 03/02/2018 12:19 PM CDT Miscellaneous samples (specimen) TISSUE SPECIMEN FROM SKIN / Unknown 03/01/2018 03/02/2018 12:19 PM CDT Deshaun Etienne MD LAB - PATHOLOGY/CYTOLOGY ORD ERABLES Final Result DERMATOPATHOLOGY LABORATORY [facility] - Department of Dermatology [address] [place] [address], 5th Floor Lab [address] [phone] documented in this encounter Visit Diagnoses Not on filedocumented in this encounter Care Teams Electric Motor Repair Supervisor Relationship Specialty Start Date End Date Wesley Rivers DO [address] [facility] [address] [facility] [address] [place] [address] PCP - General 04/03/09 documented as of this encounter
--- OUTSIDE RECORDS SUMMARY | 2025-04-20 13:37 | XMS_ITS | Referral Summary ---
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
--- OUTSIDE RECORDS SUMMARY | 2025-04-20 13:37 | XMS_ITS | Clinical Summary ---
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
--- OUTSIDE RECORDS SUMMARY | 2025-04-20 13:37 | XMS_ITS | Encounter Summary ---
Author Organization [facility] Address [address] [facility] [address] Care Team Providers Care Trackmobile Operator Name Role Phone Wesley Rivers DO Primary Care Provider [phone] [phone] Encounter Details Date Type Department Care Team (Late st Contact Info) Description 12/06/2019 Lab Requisition [facility] Care DermPath Lab [address] 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 Gender Identity Not on file Sexual Orientation Not on file documented as of this encounter Plan of Treatment Not on file documented as of this encounter Procedures Procedure Name Priority Date/Time Associated Diagnosis Comments DERMATOPATHOLOGY Routine 12/05/2019 12:0 0 AM INTEGRATION MANAGER documented in this encounter Results * DERMATOPATHOLOGY (12/05/2019 12:00 AM INTEGRATION MANAGER) Case Report Dermatopathology Report Case: [id number] Authorizing Provider: Deshaun Etienne MD Collected: 12/05/2019 12:00 AM Ordering Location: [facility] Lab Received: 12/06/2019 12:27 PM Pathologist: Andrew Shabazz MD Specimen: Skin, right lat nasal bulb 0 2:14 PM INTEGRATION MANAGER DERMATOPATHOLOGY LABORATORY Final Diagnosis Specimen A. SKIN, right lat nasal bulb: BASAL CELL CARCINOMA, INFILTRATIVE PATTERN (C44.311) 0 2:14 PM INTEGRATION MANAGER DERMATOPATHOLOGY LABORATORY at 1414 INTEGRATION MANAGER Clinical History R/O BCC. 0 2:14 PM INTEGRATION MANAGER DERMATOPATHOLOGY LABORATORY Gross Description Specimen A: Received is one formalin filled container labeled with the patient's name and designated right lat nasal bulb. The specimen consists of a shave biopsy (2 pieces) measuring [id number] & [id number]. Jar 0. 0 2:14 PM INTEGRATION MANAGER DERMATOPATHOLOGY LABORATORY Microscopic Description Specimen A. SKIN, right lat nasal bulb: Within the dermis there are nodular aggregates of basaloid cells associated with fibromyxoid stroma and epithelial-stromal clefts. At the advancing margin of the neoplasm, there are smaller angulated nests that infiltrate the dermis. 0 2:14 PM INTEGRATION MANAGER DERMATOPATHOLOGY LABORATORY Disclaimer An external and internal positive and negative controls are appropriate for the histochemical, immunohistochemical and immunofluorescence stain(s) in this case (if any), except where stated explicitly. The performance characteristics of the stain(s) cited in this report were developed and its performance characteristic determined by the Dermatopathology Laboratory at [facility], directed by Dr. Clifton Shabazz. These tests need not be, and therefore are not, approved by the [place] Food and Drug Administration. The tests are used for clinical purposes. Billing Codes Specimen Charges Stain Charges 30624 1 0 2:14 PM INTEGRATION MANAGER DERMATOPATHOLOGY LABORATORY Embedded Images 0 2:14 PM INTEGRATION MANAGER DERMATOPATHOLOGY LABORATORY Pathology/Cytolog y TISSUE SPECIMEN FROM SKIN / Unknown 12/05/2019 12/06/2019 12:27 PM INTEGRATION MANAGER Deshanu Etienne MD LAB - PATHOLOGY/CYTOLOGY ORD ERABLES Final Result DERMATOPATHOLOGY LABORATORY [facility] - Department of Dermatology [address] [facility], 5th Floor Lab [address] [phone] documented in this encounter Visit Diagnoses Not on filedocumented in this encounter Care Teams Trackmobile Operator Relationship Specialty Start Date End Date Wesley Rivers DO [address] [facility] [address] [place] [address] PCP - General 04/03/09 documented as of this encounter
--- OUTSIDE RECORDS SUMMARY | 2025-04-20 13:37 | XMS_ITS | Clinical Summary ---
Author Organization [facility] Address [address] [facility] [place] [address] Care Team Providers Care Cheesemaking Laborer Name Role Phone Wesley Rivers Primary Care Provider [phone] [phone] Source Comments [facility],non-owned Affiliates and Associated Physician Practices is amultiple site organization consisting of ambulatory clinics and hospital sitesin [place], [place], [place] and [place]. This disclosure is being madepursuant to the Care Everywhere program and may not contain all information available regarding this patient. Last updated 18.[facility] Allergies Active Allergy Reactions Criticality Noted Date Comments Codeine Nausea and/or Vomiting 05/18/2019 Latex Rash Medium 05/18/2019 Qgienuce-Dzmzomvwxn-Tycxsyzkm Itching 2019 Medications * Be aware that medications may not be up to date on this document. Alwaysverify current medications with the patient. amLODIPine (NORVASC) 10 MG tablet Take 1 tablet by mouth once daily 02/22/20 19 Active bisoprolol - hydroCHLOROthiazide (ZIAC) 5-6.25 MG tablet Take 1 tablet by mouth once daily 02/07/20 19 Active fluticasone propionate (FLONASE) 50 MCG/ACT nasal spray [place] 2 sprays into each nostril once daily 02/07/20 19 Active lisinopril (PRINIVIL; ZESTRIL) 40 MG tablet Take 1 tablet by mouth once daily 02/22/20 19 Active meclizine (ANTIVERT) 25 MG tablet Take 1 tablet by mouth as needed 02/22/20 19 Active meloxicam (MOBIC) 15 MG tablet Take 1 tablet by mouth once daily 02/22/20 19 Active omeprazole (PRILOSEC) 20 MG capsule Take 1 capsule by mouth once daily 03/21/20 19 Active Calcium Carbonate-Vitamin D (OSCAL 500/200 D-3 PO) Take 1 tablet by mouth once daily Active Vitamins C E (VITAMIN C & E COMPLEX PO) Take 1 tablet by mouth once daily Active Other Take 1 tablet by mouth once daily Alive vitamin Active restore - 2 tabs daily Active Active Problems No known active problems Social History Tobacco Use Types Packs/Day Years Used Date Smoking Tobacco: Never Smokeless Tobacco: Never Alcohol Use Standard Drinks/Week Comments No 0 (1 standard drink = 0.6 oz pur e alcohol) Comments Unknown Sex and Gender Information Value Date Recorded Sex Assigned at Not on file 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 Gender Identity Not on file Sexual Orientation Not on file Last Filed Vital Signs Vital Sign Reading Time Taken Comments Blood Pressure 124/72 05/02/2020 10:45 AM CDT Pulse 66 05/02/2020 10:45 AM CDT Temperature - - Respiratory Rate - - Oxygen Saturation 93% 01/18/2020 2:44 PM CDT Inhaled Oxygen Concentration - - Weight 59 kg (130 lb) 05/02/2020 7:38 AM CDT Height 147.3 cm (4' 10) 05/02/2020 7:38 AM CDT Body Mass Index 27.17 05/02/2020 7:38 AM CDT Plan of Treatment Health Maintenance Due Date Last Done Comments BONE DENSITY TESTING 1936 DTAP/TDAP/TD VACCINES (1 - Tdap) 1955 PNEUMOCOCCAL VACCINE 50+ (1 of 1 - PCV) 1986 ZOSTER VACCINE (1 of 2) 1986 Respiratory Syncytial Virus (RSV) Vaccine Pt: or over 60 yrs (1 - 1-dose 75+ series) 2011 COVID-19 VACCINE ( - 2023-2 5 season) 2024 DEPRESSION SCREENING 11/08/2024 INFLUENZA VACCINE (Season Ended) 2025 HEPATITIS B VACCINE Aged Out No longe r eligible based on patient's age to complete this topic HIB VACCINE Aged Out No longer eligi ble based on patient's age to complete this topic HPV VACCINE Aged Out No longer eligi ble based on patient's age to complete this topic MENINGOCOCCAL (Group B) VACC INE SHARED DECISION-MAKING Aged Out No longer eligibl e based on patient's age to complete this topic MENINGOCOCCAL GROUPS A/C/Y/W VACCINE Aged Out No longer eligible b ased on patient's age to complete this topic Insurance [employer] Care Teams Cheesemaking Laborer Relationship Specialty Start Date End Date Wesley Rivers DO [address] [facility] [address] [facility] [address] [place], [place] [id number] PCP - General 04/03/09
== END 2025-04-20 13:34 | disposition home or self-care (01) ==
LOC: CHSIMG 13:35
PROVIDERS: PCP Internal Medicine; Visit Provider Internal Medicine
DX: M54.50 Low back pain, unspecified (principal); M43.06 Spondylolysis, lumbar region; M41.86 Other forms of scoliosis, lumbar region
CPT/HCPCS: 72100

== ENCOUNTER 2025-10-08 12:44 | Emergency (ER) | payer MEDICARE, SELFPAY ==
--- NOTE | ~2025-10-08 | CT_ITS ---
EXAMINATION: CT facial bones wo con DATE: 10/08/2025 13:11 INDICATION: Anterior right frontal scalp contusion TECHNIQUE: Computed tomography (CT) of the facial bones and maxillofacial region was performed without intravenous contrast. Coronal reconstructions were obtained. Automated exposure control and iterative reconstruction technique were employed. The dose-length product was 256.65 mGy-cm. COMPARISON: None. FINDINGS: No fracture. Specifically the nasal bones, mandible, zygomatic arches and richardson of the orbits and paranasal sinuses are all intact. Nasal septum is midline and intact. 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 Changes of bilateral intraocular lens replacement. Orbits are otherwise normal. Mild mucoperiosteal thickening the bilateral ethmoid sinuses. Mastoid air cells and middle ear cavities are clear. IMPRESSION: 1. No maxillofacial fractures. Reviewed, dictated and finalized at location A. ENT AMBASSADOR
--- NOTE | ~2025-10-08 | CT_ITS ---
EXAMINATION: CT cervical spine wo con DATE: 10/08/2025 13:11 INDICATION: Status post fall. Neck pain. TECHNIQUE: Computed tomography (CT) of the cervical spine was performed without intravenous contrast. The dose-length product was 256 mGy-cm. Automated exposure control and iterative reconstruction technique were employed. COMPARISON: CT dated 08/30/2022 FINDINGS: Craniovertebral junction is normal. Vertebral body heights are maintained. There is degenerative anterolisthesis at C4-5, C5-6 and C6-7. There is multilevel uncinate and facet hypertrophy. Odontoid process is normal. Lateral masses normally aligned. Lung apices are normal. No acute fracture or traumatic malalignment. There is carotid atherosclerosis. IMPRESSION: 1. No acute abnormality of the cervical spine. 2: Moderate cervical spondylosis. Reviewed, dictated and finalized at location I. SHOVER
--- NOTE | ~2025-10-08 | CT_ITS ---
EXAMINATION: CT brain wo con, 10/08/2025 13:00 STRIP STAMP STRAIGHTENER HISTORY: Fall COMPARISON: No comparisons available. Technique: Axial images obtained of the brain without contrast. One or more of the following dose reduction techniques were used: automated exposure control, adjustment of the mA and/or kV according to patient size, use of iterative reconstruction technique. Findings: No acute infarct or parenchymal hemorrhage. No abnormal mass or mass effect. No midline shift. No extra-axial fluid collections. No hydrocephalus. Mastoid air cells unremarkable. Sinuses and orbits unremarkable. No acute fracture. Anterior right-sided subcutaneous swelling with subcutaneous hemorrhage. Impression: 1.No acute intracranial abnormality. Reviewed, dictated and finalized at location P. P STAMP STRAIGHTENER Impression: 1.No acute intracranial abnormality.
[2025-10-08 12:50] VITALS: BP 162/104; PULSE 87; RESP 20; TEMP 36.7; O2SAT 94
--- NOTE | 2025-10-08 12:50 | ED.FALL ---
HPI - Fall General Chief Complaint: Head Injury Stated Complaint: FALL Time Seen by Provider: 10/08/25 12:49 Source: patient Mode of arrival: ambulatory Limitations: no limitations History of Present Illness HPI Narrative: Patient tripped on a blanket and fell complaining of right forehead good a and nose bleed, stopped prior to arrival. Patient on Xarelto. She denies other injuries. Came from home by private car with her daughter. Related Data Home Medications ?Medication ?Instructions ?Recorded ?Confirmed ?Last Taken ?Type bisoprolol 10 1 tablet PO 01/22/25 09/03/25 Unknown History mg-hydrochlorothiazide 6.25 mg tablet omeprazole 20 mg capsule,delayed 20 mg PO DAILY 10/08/25 Unknown History release vitamins A,C,P-sjjy-gaobzg 4,296 1 cap PO DAILY 10/08/25 Unknown History mcg-226 mg-90 mg capsule (PreserVision AREDS) Allergies Allergy/AdvReac Type Severity Reaction Status Date / Time bacitracin (From Neosporin Allergy Mild Rash Verified 10/08/25 13:08 ([id number])) codeine Allergy Mild Nausea and Verified 10/08/25 13:08 Vomiting latex Allergy Mild Rash Verified 10/08/25 13:08 neomycin (From Neosporin Allergy Mild Rash Verified 10/08/25 13:08 (sqa-voj-nxtxt)) polymyxin B (From Neosporin Allergy Mild Rash Verified 10/08/25 13:08 (pib-usn-foonw)) doxycycline AdvReac Nausea and Verified 10/08/25 13:08 Vomiting levofloxacin AdvReac Nausea and Verified 10/08/25 13:08 Vomiting Review of Systems Review of Systems: All systems reviewed & are unremarkable except as noted in HPI and below PMFSH Past Medical History Medical History (Updated 10/08/25 @ 12:58 by Juana Torres MD) H/O Mohs micrographic surgery for skin cancer (~04/2020) Facial basal cell cancer Family History Family History Mother Hypertension Family history of Alzheimer's disease Family history of renal failure Patient's mother is Other Cerebrovascular accident Diabetes mellitus Family history of kidney disease Social History Social History Smoking status: Never smoker Second hand tobacco smoke exposure: No Alcohol intake: never Substance use: never Lack of Transportation: No Lack of Food: Never True Current Housing: I Have Housing Concerned About Future Housing: No Difficulty Paying Gas/Electric Bills: No Difficulty Paying for Meds: No Currently Unemployed: No Education: Grade School Difficulty w/ Childcare or Family Care: No Exam Narrative: General appearance: Well-developed, well-nourished Skin: Normal color Head: Right forehead hematoma Eyes: Clear conjunctiva ENT: Oropharynx normal, ears normal, dried nose bleed, no deformity, no bruises, no active bleeding Neck: Supple, nontender Chest and respiratory: Airway patent, no respiratory distress, no accessory muscle use Heart: Regular rate/rhythm Abdomen: Soft, nontender, no organomegaly, quiet bowel sounds Vascular: Normal peripheral pulses, normal capillary refill. 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 is normal as tested, no gross motor deficit Course Vital Signs Vital signs: Vital Signs Temperature 36.7 C 10/08/25 12:50 Pulse Rate 87 10/08/25 12:50 Respiratory Rate 20 10/08/25 12:50 Blood Pressure 162/104 H 10/08/25 12:50 Pulse Oximetry 94 10/08/25 12:50 Oxygen Delivery Room Air 10/08/25 12:50 Temperature 36.7 C 10/08/25 12:50 Pulse Rate 87 10/08/25 12:50 Respiratory Rate 20 10/08/25 12:50 Blood Pressure 162/104 H 10/08/25 12:50 Pulse Oximetry 94 10/08/25 12:50 Oxygen Delivery Room Air 10/08/25 12:50 MDM - Fall MDM Narrative Medical decision making narrative: Patient Gaurav, had a fall, right forehead hematoma. CT head without contrast showed no acute abnormality CT cervical spine without contrast showed no acute abnormality CT facial bone without contrast showed no acute abnormality. Diagnosis fall, closed head injury, controlled nasal bleed The pt was discharged to home.the pt,s condition upon discharge was fair,education was provided to the pt in reference to the final impression,discharge study results,treatment,prognosis and need for follow up . Differential Diagnosis Differential diagnosis: Likely concussion without loss of consciousness Imaging Data My impression: Impressions Head CT 10/08/25 13:14 Impression: 1.No acute intracranial abnormality. Radiologist's impression: Impressions Head CT 10/08/25 13:14 Impression: 1.No acute intracranial abnormality. Critical Care Time Critical Care Time Critical Care Time: No Discharge Plan Discharge Clinical Impression: CHI (closed head injury), Hematoma, Epistaxis Patient Disposition: Home Condition: Stable Instructions: Nosebleed (ED), Head Injury (DC), Hematoma (ED) Additional Instructions: Return if symptoms are worsening , call your family physician for appointment, take Tylenol as as needed for aches and pain, continue home medications. Ice pack 20 minutes/hour for the next 24 hours Kmeq-ezr-glkznnz nasal saline spray as needed Patient Language: Algerian Prescriptions: No Action omeprazole 20 mg capsule,delayed release(DR/EC) 20 mg PO DAILY PreserVision AREDS 4,296 mcg-226 mg-90 mg capsule 1 cap PO DAILY bisoprolol-hydrochlorothiazide 10-6.25 mg tablet 1 tablet PO DAILY meclizine 25 mg tablet 25 mg PO TID PRN (Reason: dizziness) Qty: 270 0RF lisinopril 40 mg tablet See Rx Instructions .ROUTE .COMPLEX Qty: 30 0RF Dose Instruction: Take 1 tablet by mouth once daily Rx Instructions: Take 1 tablet by mouth once daily Xarelto 20 mg tablet See Rx Instructions .ROUTE .COMPLEX Qty: 30 5RF Dose Instruction: TAKE 1 TABLET BY MOUTH ONCE DAILY WITH EVENING MEAL Rx Instructions: TAKE 1 TABLET BY MOUTH ONCE DAILY WITH EVENING MEAL Follow-up/Referrals: Marissa Gar MD [Primary Care Provider, Internal Medicine]
[2025-10-08] MEDS: ACETAMINOPHEN 325 MG TABLET 650 MG PO (13:16)
--- OUTSIDE RECORDS SUMMARY | 2025-10-08 13:49 | XMS_ITS | Encounter Summary ---
Author Organization [facility] Address [address] [place] [address] Care Team Providers Care Ball Shagger Name Role Phone Wesley Rivers DO Primary Care Provider +1 [phone] Encounter Details Date Type Department Care Team (Late st Contact Info) Description 04/12/2019 Lab Requisition [facility] Care [facility] Lab [address] [facility] [place] [address] Deshaun Etienne MD [address] [place] [address] Social History Tobacco Use Types Packs/Day Years Used Date Smoking Tobacco: Never Assessed Comments Unknown Sex and Gender Information Value Date Recorded Sex Assigned at Not on file Legal 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 Jar 0. Specimen B: Received is one formalin filled container labeled with the patient's name and designated right upper cutaneous lip. The specimen consists of a shave biopsy measuring 8b4i4bt. Jar 0. 4:03 PM T DERMATOPATHOLOGY LABORATORY [...] characteristic determined by the Dermatopathology Laboratory at [facility], directed by Dr. Clifton Shabazz. These tests need not be, and therefore are not, approved by the [place] Food and Drug Administration. The tests are used for clinical purposes. Billing Codes Specimen Charges Stain Charges 83153 09428 1 1 4:03 PM CDT DERMATOPATHOLOGY LABORATORY Embedded Images 06/06/201 9 4:03 PM CDT DERMATOPATHOLOGY LABORATORY Pathology/Cytology TISSUE SPECIMEN FROM SKIN / Unknown 04/11/2019 04/12/2019 12:03 PM CDT Miscellaneous samples (specimen) TISSUE SPECIMEN FROM SKIN / Unknown 04/11/2019 04/12/2019 12:03 PM CDT us Deshaun Etienne MD LAB - PATHOLOGY/CYTOLOGY ORD ERABLES Final Result DERMATOPATHOLOGY LABORATORY [facility] - Department of Dermatology [address], 5th Floor Lab B [address] [phone] documented in this encounter Visit Diagnoses Not on filedocumented in this encounter Care Teams Ball Shagger Relationship Specialty Start Date End Date Wesley Rivers DO [address] [place] [address] PCP - General 04/03/09 documented as of this encounter
--- OUTSIDE RECORDS SUMMARY | 2025-10-08 13:49 | XMS_ITS | Encounter Summary ---
Author Organization [facility] Address [address] [place] [address] Care Team Providers Care Box Printing Machine Operator Name Role Phone Wesley Rivers DO Primary Care Provider +1 [phone] Encounter Details Date Type Department Care Team (Late st Contact Info) Description 12/06/2019 Lab Requisition [facility] Care DermPath Lab [address] [facility] [place] [address] Deshaun Etienne MD [address] [place] [address] Social History Tobacco Use Types Packs/Day Years Used Date Smoking Tobacco: Never Smokeless Tobacco: Never Alcohol Use Standard Drinks/Week Comments No 0 (1 standard drink = 0.6 oz pur e alcohol) Comments Unknown Sex and Gender Information Value Date Recorded Sex Assigned at Not on file Legal Sex Female 6:02 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 HEEL 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 Gender Identity Not on file Sexual Orientation Not on file documented as of this encounter Plan of Treatment Not on file documented as of this encounter Procedures Procedure Name Priority Date/Time Associated Diagnosis Comments DERMATOPATHOLOGY Routine 12/05/2019 12:0 0 AM WOOD HEEL 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 documented in this encounter Results * DERMATOPATHOLOGY (12/05/2019 12:00 AM WOOD HEEL 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) Case Report Dermatopathology Report Case: [id number] Authorizing Provider: Deshaun Etienne MD Collected: 12/05/2019 12:00 AM Ordering Location: [facility] Received: 12/06/2019 12:27 PM Pathologist: Andrew Shabazz MD Specimen: Skin, right lat nasal bulb 0 2:14 PM WOOD HEEL 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 DERMATOPATHOLOGY LABORATORY Final Diagnosis Specimen A. SKIN, right lat nasal bulb: BASAL CELL CARCINOMA, INFILTRATIVE PATTERN (C44.311) 0 2:14 PM WOOD HEEL 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 DERMATOPATHOLOGY LABORATORY at [address] WOOD HEEL 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 Clinical History R/O BCC. 0 2:14 PM WOOD HEEL 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 DERMATOPATHOLOGY LABORATORY Gross Description Specimen A: Received is one formalin filled container labeled with the patient's name and designated right lat nasal bulb. The specimen consists of a shave biopsy (2 pieces) measuring [id number] & 9v4c0um. Jar 0. 0 2:14 PM WOOD HEEL 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 DERMATOPATHOLOGY LABORATORY Microscopic Description Specimen A. SKIN, right lat nasal bulb: Within the dermis there are nodular aggregates of basaloid cells associated with fibromyxoid stroma and epithelial-stromal clefts. At the advancing margin of the neoplasm, there are smaller angulated nests that infiltrate the dermis. 0 2:14 PM WOOD HEEL 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 DERMATOPATHOLOGY LABORATORY Disclaimer An external and internal positive and negative controls are appropriate for the histochemical, immunohistochemical and immunofluorescence stain(s) in this case (if any), except where stated explicitly. The performance characteristics of the stain(s) cited in this report were developed and its performance characteristic determined by the Dermatopathology Laboratory at [facility], directed by Dr. Clifton Shabazz. These tests need not be, and therefore are not, approved by the [place] Food and Drug Administration. The tests are used for clinical purposes. Billing Codes Specimen Charges Stain Charges 97028 1 0 2:14 PM WOOD HEEL 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 DERMATOPATHOLOGY LABORATORY Embedded Images 0 2:14 PM WOOD HEEL 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 DERMATOPATHOLOGY LABORATORY Pathology/Cytolog y TISSUE SPECIMEN FROM SKIN / Unknown 12/05/2019 12/06/2019 12:27 PM WOOD HEEL 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 Deshaun Etienne MD LAB - PATHOLOGY/CYTOLOGY ORD ERABLES Final Result DERMATOPATHOLOGY LABORATORY [facility] - Department of Dermatology [address] [facility], 5th Floor Lab [address] [phone] documented in this encounter Visit Diagnoses Not on filedocumented in this encounter Care Teams Box Printing Machine Operator Relationship Specialty Start Date End Date Wesley Rivers DO [address] [facility] [address] [place] [address] PCP - General 04/03/09 documented as of this encounter
--- OUTSIDE RECORDS SUMMARY | 2025-10-08 13:49 | XMS_ITS | Clinical Summary ---
Author Organization [facility] Address [address] [place] [address] Care Team Providers Care Manager Warehouse Name Role Phone Wesley Rivers Primary Care Provider +1 [phone] Source Comments [facility],non-owned Affiliates and Associated Physician Practices is amultiple site organization consisting of ambulatory clinics and hospital sitesin [place], [place], [place] and [place]. This disclosure is being madepursuant to the Care Everywhere program and may not contain all information available regarding this patient. Last updated 18.[facility] Allergies Active Allergy Reactions Criticality Noted Date Comments Codeine Nausea and/or Vomiting 05/18/2019 Latex Rash Medium 05/18/2019 Lgqgulrk-Xwoegyfiyu-Nfztkyrzd Itching 2019 Medications * Be aware that medications may not be up to date on this document. Alwaysverify current medications with the patient. 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
--- OUTSIDE RECORDS SUMMARY | 2025-10-08 13:49 | XMS_ITS | Encounter Summary ---
Author Organization [facility] Address [address] [place] [address] Care Team Providers Care Residential Program Director Name Role Phone Wesley Rivers DO Primary Care Provider +1 [phone] Encounter Details Date Type Department Care Team (Late st Contact Info) Description 03/02/2018 Lab Requisition [facility] Care DermPath Lab [address] [facility] [place] [address] Deshaun Etienne MD [address] [place] [address] Social History Tobacco Use Types Packs/Day Years Used Date Smoking Tobacco: Never Assessed Comments Unknown Sex and Gender Information Value Date Recorded Sex Assigned at Not on file 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 Check margins. 3:21 PM [facility] DERMATOPATHOLOGY LABORATORY Gross Description Specimen A: Received is one formalin filled container labeled with the patient's name and designated posterior top of left shoulder. The specimen consists of a shave biopsy measuring [id number]. The margin is inked green. Jar 0. Specimen B: Received is one formalin filled container labeled with the patient's name and designated left upper outer arm. The specimen consists of a shave biopsy measuring 0m9k0ax. The margin is inked green. Jar 0. [...] characteristic determined by the Dermatopathology Laboratory at [facility]. These tests need not be, and therefore are not, approved by the [place] Food and Drug Administration. The tests are used for clinical purposes. Billing Codes Specimen Charges Stain Charges 23678 14592 1 1 8 3:21 PM CDT DERMATOPATHOLOGY LABORATORY Embedded Images 8 3:21 PM CDT DERMATOPATHOLOGY LABORATORY Pathology/Cytology TISSUE SPECIMEN FROM SKIN / Unknown 03/01/2018 03/02/2018 12:19 PM CDT Miscellaneous samples (specimen) TISSUE SPECIMEN FROM SKIN / Unknown 03/01/2018 03/02/2018 12:19 PM CDT Deshaun Etienne MD LAB - PATHOLOGY/CYTOLOGY ORD ERABLES Final Result DERMATOPATHOLOGY LABORATORY [facility] - Department of Dermatology [address] [place] [address], 5th Floor Lab [address] [phone] documented in this encounter Visit Diagnoses Not on filedocumented in this encounter Care Teams Residential Program Director Relationship Specialty Start Date End Date Wesley Rivers DO [address] [facility] [address] [facility] [address] [place] [address] PCP - General 04/03/09 documented as of this encounter
--- OUTSIDE RECORDS SUMMARY | 2025-10-08 13:49 | XMS_ITS | Clinical Summary ---
Author Organization [facility] [address] Address [address] [place] [address] Care Team Providers Care Manager Resort Name Role Phone Wesley Rivers MD Primary Care Provider +1- [phone] Allergies Active Allergy Reactions Criticality Noted Date Comments Latex Rash Medium 09/14/2019 Social History Tobacco Use Types Packs/Day Years Used Date Smoking Tobacco: Never Assessed Comments Unknown Sex and Gender Information Value Date Recorded Sex Assigned at Not on file Legal Sex Female 5:05 PM MOBILE DEVELOPER Gender Identity Not on file Sexual Orientation Not on file Plan of Treatment Not on file Insurance [facility] Care Teams Manager Resort Relationship Specialty Start Date End Date Greeling, Wesley L., MD [address] [facility] [address] [place] [address] PCP - General Internal Medicine 09/07/19
--- OUTSIDE RECORDS SUMMARY | 2025-10-08 14:38 | XMS_ITS | Clinical Summary ---
Author Organization [facility] Address [address] [facility] [address] Care Team Providers Care Chainstitch Seat Joiner Name Role Phone Wesley Rivers Primary Care Provider +1 [phone] Source Comments [facility],non-owned Affiliates and Associated Physician Practices is amultiple site organization consisting of ambulatory clinics and hospital sitesin [place], [place], [place] and [place]. This disclosure is being madepursuant to the Care Everywhere program and may not contain all information available regarding this patient. Last updated 18.[facility] Allergies Active Allergy Reactions Criticality Noted Date Comments Codeine Nausea and/or Vomiting 05/18/2019 Latex Rash Medium 05/18/2019 Mdjsxecl-Hmctlsboct-Reudmanew Itching 2019 Medications * Be aware that medications may not be up to date on this document. Alwaysverify current medications with the patient. 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
--- OUTSIDE RECORDS SUMMARY | 2025-10-08 14:38 | XMS_ITS | Clinical Summary ---
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
--- OUTSIDE RECORDS SUMMARY | 2025-10-08 14:38 | XMS_ITS | Encounter Summary ---
Author Organization [facility] Address [address] [facility] [place] [address] Care Team Providers Care Immunochemist Name Role Phone Wesley Rivers DO Primary Care Provider +1 [phone] Encounter Details Date Type Department Care Team (Late st Contact Info) Description 04/12/2019 Lab Requisition [facility] Care DermPath Lab [address] [facility] [place] [address] Deshaun Etienne MD [address] [place] [address] Social History Tobacco Use Types Packs/Day Years Used Date Smoking Tobacco: Never Assessed Comments Unknown Sex and Gender Information Value Date Recorded Sex Assigned at Not on file Legal Sex Female 6: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 Jar 0. Specimen B: Received is one formalin filled container labeled with the patient's name and designated right upper cutaneous lip. The specimen consists of a shave biopsy measuring 0t5m0no. Jar 0. 4:03 PM T DERMATOPATHOLOGY LABORATORY [...] characteristic determined by the Dermatopathology Laboratory at [facility], directed by Dr. Clifton Shabazz. These tests need not be, and therefore are not, approved by the [place] Food and Drug Administration. The tests are used for clinical purposes. Billing Codes Specimen Charges Stain Charges 25505 [id number] 1 1 4:03 PM CDT DERMATOPATHOLOGY LABORATORY Embedded Images 06/06/201 9 4:03 PM CDT DERMATOPATHOLOGY LABORATORY Pathology/Cytology TISSUE SPECIMEN FROM SKIN / Unknown 04/11/2019 04/12/2019 12:03 PM CDT Miscellaneous samples (specimen) TISSUE SPECIMEN FROM SKIN / Unknown 04/11/2019 04/12/2019 12:03 PM CDT us Deshaun Etienne MD LAB - PATHOLOGY/CYTOLOGY ORD ERABLES Final Result DERMATOPATHOLOGY LABORATORY [facility] - Department of Dermatology [address] [facility], 5th Floor Lab [address] [phone] documented in this encounter Visit Diagnoses Not on filedocumented in this encounter Care Teams Immunochemist Relationship Specialty Start Date End Date Wesley Rivers DO [address] [facility] [address] [place] [address] PCP - General 04/03/09 documented as of this encounter
--- OUTSIDE RECORDS SUMMARY | 2025-10-08 14:38 | XMS_ITS | Encounter Summary ---
Author Organization [facility] Address [address] [place] [address] Care Team Providers Care Refrigerator Mover Name Role Phone Wesley Rivers DO Primary Care Provider [phone] Encounter Details Date Type Department Care Team (Late st Contact Info) Description 03/02/2018 Lab Requisition [facility] Care DermPath Lab [address] [facility] [place] [address] Deshaun Etienne MD [address] [address] Social History Tobacco Use Types Packs/Day Years Used Date Smoking Tobacco: Never Assessed Comments Unknown Sex and Gender Information Value Date Recorded Sex Assigned at Not on file Legal Sex Female 6:02 PM DRY ROLLER Gender Identity Not on file Sexual Orientation Not on file documented as of this encounter Plan of Treatment Not on file documented as of this encounter Procedures Procedure Name Priority Date/Time Associated Diagnosis Comments DERMATOPATHOLOGY Routine 03/01/2018 12:0 0 AM CDT documented in this encounter Results * DERMATOPATHOLOGY (03/01/2018 12:00 AM CDT) Case Report Dermatopathology Report Case: [id number] Authorizing Provider: Deshaun Etienne MD Collected: 03/01/2018 [...] R/O SCC, BCC. Check margins. 3:21 PM [facility] DERMATOPATHOLOGY LABORATORY Gross Description Specimen A: Received is one formalin filled container labeled with the patient's name and designated posterior top of left shoulder. The specimen consists of a shave biopsy measuring [id number]. The margin is inked green. Jar 0. Specimen B: Received is one formalin filled container labeled with the patient's name and designated left upper outer arm. The specimen consists of a shave biopsy measuring [id number]. The margin is inked green. Jar 0. [...] characteristic determined by the Dermatopathology Laboratory at [facility]. These tests need not be, and therefore are not, approved by the [place] Food and Drug Administration. The tests are used for clinical purposes. Billing Codes Specimen Charges Stain Charges 01102 36721 1 1 8 3:21 PM CDT DERMATOPATHOLOGY LABORATORY Embedded Images 8 3:21 PM CDT DERMATOPATHOLOGY LABORATORY Pathology/Cytology TISSUE SPECIMEN FROM SKIN / Unknown 03/01/2018 03/02/2018 12:19 PM CDT Miscellaneous samples (specimen) TISSUE SPECIMEN FROM SKIN / Unknown 03/01/2018 03/02/2018 12:19 PM CDT Deshaun Etienne MD LAB - PATHOLOGY/CYTOLOGY ORD ERABLES Final Result DERMATOPATHOLOGY LABORATORY [facility] - Department of Dermatology [address] [place] [address], 5th Floor Lab [address] [phone] documented in this encounter Visit Diagnoses Not on filedocumented in this encounter Care Teams Refrigerator Mover Relationship Specialty Start Date End Date Wesley Rivers DO [address] [facility] [address] [facility] [address] [place] [address] PCP - General 04/03/09 documented as of this encounter
--- OUTSIDE RECORDS SUMMARY | 2025-10-08 14:38 | XMS_ITS | Encounter Summary ---
Author Organization [facility] Address [address] [place] [address] Care Team Providers Care Process Controller Name Role Phone Wesley Rivers DO Primary Care Provider [phone] Encounter Details Date Type Department Care Team (Late st Contact Info) Description 12/06/2019 Lab Requisition [facility] Care DermPath Lab [address] [facility] [place] [address] Deshaun Etienne MD [address] [place] [address] Social History Tobacco Use Types Packs/Day Years Used Date Smoking Tobacco: Never Smokeless Tobacco: Never Alcohol Use Standard Drinks/Week Comments No 0 (1 standard drink = 0.6 oz pur e alcohol) Comments Unknown Sex and Gender Information Value Date Recorded Sex Assigned at Not on file Legal Sex Female 6:02 PM CONTROL SYSTEMS DEVELOPER Gender Identity Not on file Sexual Orientation Not on file documented as of this encounter Plan of Treatment Not on file documented as of this encounter Procedures Procedure Name Priority Date/Time Associated Diagnosis Comments DERMATOPATHOLOGY Routine 12/05/2019 12:0 0 AM CONTROL SYSTEMS DEVELOPER documented in this encounter Results * DERMATOPATHOLOGY (12/05/2019 12:00 AM CONTROL SYSTEMS DEVELOPER) Case Report Dermatopathology Report Case: [id number] Authorizing Provider: Deshaun Etienne MD Collected: 12/05/2019 12:00 AM Ordering Location: [facility] Received: 12/06/2019 12:27 PM Pathologist: Andrew Shabazz MD Specimen: Skin, right lat nasal bulb 0 2:14 PM CONTROL SYSTEMS DEVELOPER DERMATOPATHOLOGY LABORATORY Final Diagnosis Specimen A. SKIN, right lat nasal bulb: BASAL CELL CARCINOMA, INFILTRATIVE PATTERN (C44.311) 0 2:14 PM CONTROL SYSTEMS DEVELOPER DERMATOPATHOLOGY LABORATORY at [address]14 CONTROL SYSTEMS DEVELOPER Clinical History R/O BCC. 0 2:14 PM CONTROL SYSTEMS DEVELOPER DERMATOPATHOLOGY LABORATORY Gross Description Specimen A: Received is one formalin filled container labeled with the patient's name and designated right lat nasal bulb. The specimen consists of a shave biopsy (2 pieces) measuring [id number] & [id number]. Jar 0. 0 2:14 PM CONTROL SYSTEMS DEVELOPER DERMATOPATHOLOGY LABORATORY Microscopic Description Specimen A. SKIN, right lat nasal bulb: Within the dermis there are nodular aggregates of basaloid cells associated with fibromyxoid stroma and epithelial-stromal clefts. At the advancing margin of the neoplasm, there are smaller angulated nests that infiltrate the dermis. 0 2:14 PM CONTROL SYSTEMS DEVELOPER DERMATOPATHOLOGY LABORATORY Disclaimer An external and internal positive and negative controls are appropriate for the histochemical, immunohistochemical and immunofluorescence stain(s) in this case (if any), except where stated explicitly. The performance characteristics of the stain(s) cited in this report were developed and its performance characteristic determined by the Dermatopathology Laboratory at [facility], directed by Dr. Clifton Shabazz. These tests need not be, and therefore are not, approved by the [place] Food and Drug Administration. The tests are used for clinical purposes. Billing Codes Specimen Charges Stain Charges 28685 1 0 2:14 PM CONTROL SYSTEMS DEVELOPER DERMATOPATHOLOGY LABORATORY Embedded Images 0 2:14 PM CONTROL SYSTEMS DEVELOPER DERMATOPATHOLOGY LABORATORY Pathology/Cytolog y TISSUE SPECIMEN FROM SKIN / Unknown 12/05/2019 12/06/2019 12:27 PM CONTROL SYSTEMS DEVELOPER Deshaun Etienne MD LAB - PATHOLOGY/CYTOLOGY ORD ERABLES Final Result DERMATOPATHOLOGY LABORATORY [facility] - Department of Dermatology [address] [facility], 5th Floor Lab B [address] [phone] documented in this encounter Visit Diagnoses Not on filedocumented in this encounter Care Teams Process Controller Relationship Specialty Start Date End Date Wesley Rivers DO [address] [facility] [address] [place] [address] PCP - General 04/03/09 documented as of this encounter
[2025-10-08 14:46] VITALS: BP 135/84; PULSE 88; RESP 20; TEMP 36.6; O2SAT 92
== END 2025-10-08 14:48 | disposition home or self-care (01) ==
LOC: CHSED 13:32
PROVIDERS: Emergency Provider Emergency Medicine; PCP Internal Medicine
DX: S00.83XA Contusion of other part of head, initial encounter (principal); W01.0XXA Fall on same level from slipping, tripping and stumbling without subsequent striking against object, initial encounter
CPT/HCPCS: 70450; 70486; 72125; 99284; A9270